=== PATIENT | male | born 1980 | race Caucasian/White ===

== ENCOUNTER 2016-10-15 22:22 | Inpatient (IN) ==
--- NOTE | 2016-10-16 00:47 | Emergency Department Note ---
Disposition Clinical Impression: Cellulitis Disposition: Home, Self-Care Condition: Good Time of Disposition: 01:52 General Adult HPI - General Chief complaint: ED Extremity Injury, Upper Stated complaint: left arm pain/heat in neck Time Seen by Provider: 10/16/16 00:43 Source: patient Mode of arrival: private vehicle Limitations: no limitations Nursing Notes Reviewed: Yes Vital Signs Reviewed: Yes - History of Present Illness HPI Narrative: 36-year-old male returns to the emergency department complaining of increased redness, swelling and pain to his left arm. Patient was seen here and evaluated in the emergency department approximately 14 hours ago for cellulitis. Patient states that his symptoms have worsened significantly since he was seen here. Patient states that he did receive 1 dose of IV antibiotics, was offered admission but at that time refused. He denies any chest pain or shortness of breath. He has not had any known traumatic injury to this extremity. Onset (ago): day(s) Location: left, upper extremity Radiation: proximal, distal Pain Scale: 8 Quality: burning, dull, constant Consistency: constant Improves with: nothing Worsens with: nothing Associated symptoms: Reports: nausea/vomiting Treatments Prior to Arrival: other (Recent health care encounter for similar complaint.) - Related Data Home Medications Medication Instructions Recorded Confirmed Elavil 07/22/15 07/22/15 Thorazine 07/22/15 07/22/15 Previous Rx's Medication Instructions Recorded Albuterol Sulfate [Proair HFA] 2 puff IH Q4HR 2 Days 07/22/15 Doxycycline 100 mg PO BID 7 Days 07/22/15 MethylPREDNISolone [Medrol] 4 mg PO DAILY #21 tablet 07/22/15 Mupirocin [Bactroban Oint] 1 appl NS BID 14 Days 07/22/15 Hydrocodone/Acetaminophen [[place] 1 tab PO TID PRN #15 tab 07/16/16 5-325 Tablet] Sulfamethoxazole/Trimeth DS 1 each PO BID #14 tablet 07/16/16 [Bactrim DS] Cephalexin [Keflex] 500 mg PO TID #30 capsule 10/15/16 Sulfamethoxazole/Trimeth DS 1 each PO BID #20 tablet 10/15/16 [Bactrim DS] Allergies Allergy/AdvReac Type Severity Reaction Status Date / Time aspirin [ASA] Allergy Rash Verified 10/15/16 22:38 Penicillins Allergy Gastrointestinal Verified 10/15/16 22:38 Upset All systems ED: reviewed and negative except as stated. Constitutional: Denies: fever, chills Cardiovascular: Denies: chest pain Respiratory: Denies: cough, dyspnea, wheezes Gastrointestinal: Denies: abdominal pain, nausea, vomiting Musculoskeletal: Reports: myalgia Integumentary: Denies: rash, abrasion, lesions Neurological: Denies: headache Psychiatric: Denies: anxiety, depression, suicidal thoughts, homicidal thoughts Past Medical History - Past Medical History Attestation: Yes The following information was validated with the patient. Source: patient, nursing notes reviewed Medical history: Reports: asthma, seizures, other Psychiatric history: Reports: anxiety, depression, PTSD - Social History Smoking Status: Current every day smoker Alcohol use: Reports: none Drug use: Reports: IVDU Physical Exam - General Limitations: no limitations General appearance: alert, in no apparent distress - Head Head exam: atraumatic, normocephalic, normal inspection - Neck Neck exam: Present: normal inspection, full ROM, trachea midline - Chest Chest inspection: Present: normal inspection, symmetric chest wall rise - Respiratory Respiratory exam: Present: normal lung sounds bilaterally. Absent: respiratory distress - Cardiovascular Cardiovascular exam: Present: regular rate, normal rhythm, normal heart sounds - Expanded Upper Extremity Exam Elbow exam: Present: tenderness, swelling, erythema, other (Tenderness, swelling , erythema noted to the volar aspect of the left arm beginning mid to upper third of the bicep and extending down to the middle forearm. Not completely circumferential but worsening since previous exam.) Vascular exam: Normal: capillary refill, radial pulse, ulnar pulse - Back Exam Back exam: Present: normal inspection, full ROM. Absent: tenderness - Neurological Exam Neurological exam: Present: alert, oriented X3 - Psychiatric Psychiatric exam: Present: normal affect, normal mood - Skin Skin exam: Present: warm, dry, intact, normal color Course Course Narrative: Patient returns to the emergency department with worsening cellulitis and pain. Review of his previous workup here in the emergency department earlier yesterday shows that a full workup was performed including a CBC, chemistry, blood cultures and CT of the upper extremity which did not reveal any discernible abscess or fluid collection. Plan to discuss admission with hospitalist as patient will likely fail outpatient therapy on oral Bactrim and Keflex. - Consultations Consultation #1: Discussed admission with hospitalist, he accepts patient. He requests an additional dose of vancomycin, and has been ordered. Patient will be admitted for IV antibiotics and observation. Time: 01:54 Vital Signs Temperature 99.4 F 10/15/16 22:39 Pulse Rate 106 10/15/16 22:39 Respiratory Rate 16 10/15/16 22:39 Blood Pressure 131/71 10/15/16 22:39 O2 Sat by Pulse Oximetry 100 10/15/16 22:39 Temperature 98.2 F 10/16/16 03:16 Pulse Rate 92 10/16/16 03:16 Respiratory Rate 17 10/16/16 03:16 Blood Pressure 114/69 10/16/16 03:16 O2 Sat by Pulse Oximetry 96 10/16/16 03:16 Oxygen Delivery Oxygen Delivery Room Air Medical Decision Making - Lab Data Lab results reviewed: Yes I reviewed the patient's lab results. - Radiology Data Radiology results reviewed: Yes I reviewed the patient's radiology results. Attestation Statement - Attestation Attestation: Dr. Camarillo note: Patient seen in conjunction with WU Alexander; please see his chart for complete documentation. I spent [id number] time with the patient and I agree with the patient's treatment and disposition. Progressive cellulitis since this a.m, high risk pt with h/o IV drug abuse;
[2016-10-16] MEDS ORDERED: 0.9 % Sodium Chloride 1,000 ML IVC ONE (01:29)
[2016-10-16] MEDS ORDERED: Ketorolac 30 MG/ML VIAL IV ONE (01:29)
[2016-10-16] MEDS ORDERED: Ampicillin/Sulbactam 3,000 MG in 0.9 % Sodium Chloride Mini Bag 100 ML IVPB ONE (01:29)
[2016-10-16] MEDS ORDERED: Vancomycin 1,000 MG in D5% in Water 250 ML IVPB ONE (01:48)
[2016-10-16] MEDS ORDERED: Vancomycin 1,250 MG in D5% in Water 250 ML IVPB SCH (07:00)
[2016-10-16] MEDS: *HR* OxyCODONE Immed Rel 5 MG TABLET PO PRN ×4 (08:17→21:39)
[2016-10-16] MEDS: Vancomycin 1,500 MG in D5% in Water 250 ML IVPB SCH (12:22)
[2016-10-16] MEDS ORDERED: *HR* Morphine 2 MG/ML SYRINGE IVP PRN (13:07)
[2016-10-16] MEDS ORDERED: Naloxone 0.4 MG/ML INJ IVP PRN (13:07)
--- NOTE | 2016-10-16 13:38 | Internal Med History&Physical ---
Date of Encounter: 10/16/16 Time of Encounter: 13:35 Assessment and Plan (1) Sepsis affecting skin Current visit: Yes Status: Acute Meets 2 criteria on Abx will continue same. will follow ID opinion (2) Cellulitis Current visit: Yes Status: Acute Source likely NARENDRA cellulitis. No definative orginsm yet On vanco ( day 2) will continue same. Qualifiers: Site of cellulitis: extremity Site of cellulitis of extremity: upper extremity Laterality: left Qualified Code(s): L03.114 - Cellulitis of left upper limb (3) Left upper extremity swelling Current visit: No Status: Acute (4) IVDU (intravenous drug user) Current visit: Yes Status: Acute Internal Medicine - H&P: HPI Chief complaint: hand pain Admitted From: Emergency Dept Plans for Post Hospital Care: Home History of present illness: PCP: No PCP Brief PMH: IVDU, Asthma, SZD, Depression HPI: admitted with left UL cellulitis. was started on Outpatient treatment for same and was on Bactrim and Keflex. He did not respond to oral medications. this is reason why he came to ER for further evaluation. reason for cellulitis : ?IVDU/Trauma Course in ER : was evaluated and started on Unasyn, CT scan along with US of NARENDRA was negative for abscess. reason for admission : Failure of OP oral treatment Past Med Surg Social Fam HX - Past Medical History Medical history: asthma, seizures, other Psychiatric history: anxiety, depression, PTSD - Social History Smoking Status: Current every day smoker Packs per day: 2-3 Alcohol use: none Drug use: IVDU - Family History Mother Living Status: Still Living Hx Family Respiratory Disorders: Yes (COPD, Emphysema) Hx Family Psychosocial Disorders: Yes Father Living Status: Age at : 59 Cause of : Tree fell on him and killed him Internal Medicine - H&P: Meds Albuterol Sulfate [Proair HFA] 2 puff IH Q4HR 2 Days 07/22/15 [Rx] Doxycycline 100 mg PO BID 7 Days 07/22/15 [Rx] Elavil 07/22/15 [History] MethylPREDNISolone [Medrol] 4 mg PO DAILY #21 tablet 07/22/15 [Rx] Mupirocin [Bactroban Oint] 1 appl NS BID 14 Days 07/22/15 [Rx] Thorazine 07/22/15 [History] Hydrocodone/Acetaminophen [[place] 5-325 Tablet] 1 tab PO TID PRN #15 tab [Rx] Sulfamethoxazole/Trimeth DS [Bactrim DS] 1 each PO BID #14 tablet 07/16/16 [Rx] Cephalexin [Keflex] 500 mg PO TID #30 capsule 10/15/16 [Rx] Sulfamethoxazole/Trimeth DS [Bactrim DS] 1 each PO BID #20 tablet 10/15/16 [Rx] Allergies aspirin [ASA] Allergy (Verified 10/15/16 22:38) Rash Penicillins Allergy (Verified 10/15/16 22:38) Gastrointestinal Upset All Systems PM: A 10-system review of systems was performed and is negative for pertinent findings except as documented above in the HPI. - Constitutional Constitutional: no chills, no fever(s), no night sweats - EENT Eyes: no change in vision, no discharge, no pain, no photophobia Ears: no ear discharge, no ear pain, no tinnitus Nose, mouth and throat: no dysphagia, no nasal discharge, no neck pain, no sore throat - Cardiovascular Cardiovascular ROS IM: no chest pain, no diaphoresis, no dyspnea, no lightheadedness, no palpitations, no syncope - Respiratory Respiratory: no cough, no dyspnea, no wheezing, no excessive phlegm production - Gastrointestinal Gastrointestinal: no abdominal pain, no diarrhea, no hematemesis, no hematochezia, no melena, no nausea, no vomiting - Musculoskeletal Musculoskeletal ROS IM: no numbness, no tingling - Integumentary Integumentary IM: no rash, no unusual bruising - Neurological Neurological ROS: no confusion, no convulsions, no focal weakness, no numbness, no tingling, no tremor(s) - Hematologic/Lymphatic Hematologic/Lymphatic: no easy bruising - Constitutional Vitals: Temp Pulse Resp BP Pulse Ox 98.1 F 80 17 117/70 97 10/16/16 11:12 10/16/16 11:12 10/16/16 11:12 10/16/16 11:12 10/16/16 11:12 - Head Head exam: Present: atraumatic, normocephalic - Eye Eye exam: Present: PERRL, conjuntiva pink, sclera anicteric Pupils: Present: PERRL - Neck Neck exam general surgery: Present: supple, trachea midline. Absent: lymphadenopathy - Respiratory Respiratory exam: Present: CTAB. Absent: accessory muscle use, rales, rhonchi, wheezes - Cardiovascular Cardiovascular exam: Present: RRR, +S1, +S2. Absent: diastolic murmur, gallop, rubs, systolic murmur - GI/Abdominal GI/Abdominal exam: Present: normal bowel sounds, soft, no peritoneal signs. Absent: distended, tenderness - Extremities Exam Extremities exam: Present: warm, radial pulses palpable and symetrical. Absent : calf tenderness, cyanotic, pedal edema - Neurological Exam Neurological exam: Present: CN II-XII intact, oriented X3, no focal deficits. Absent: pronater drift, facial droop, speech deficit - Skin Skin exam: Present: dry, intact
[2016-10-16] MEDS: 0.9 % Sodium Chloride 1,000 ML IVC SCH (13:51)
--- NOTE | 2016-10-16 14:05 | Infectious Disease Consult ---
Date of Encounter: 10/16/16 Time of Encounter: 14:03 Assessment and Plan (1) Sepsis affecting skin Status: Acute Assessment and plan: patient had 2 sirs criteria on admission (tachycardia and leukocytosis) improving secondary to cellulitis cultures pending (2) Cellulitis Status: Acute Assessment and plan: Symptoms started 2 weeks prior to admission secondary to splinter from walking into wall vs IVDU? failed outpatient treatment with keflex and bactrim CT negative for abscess US negative for DVT improved on vancomycin cultures pending patient states he's allergic to PCN (had rash when he was young) tolerated keflex Agree with IV vancomycin (goal trough around 10) check labs in the am (CBC, BMP, vanco trough prior to 4th dose) monitor kidney function closely follow up on cultures Qualifiers: Site of cellulitis: extremity Site of cellulitis of extremity: upper extremity Laterality: left Qualified Code(s): L03.114 - Cellulitis of left upper limb (3) Left upper extremity swelling Status: Acute (4) IVDU (intravenous drug user) Status: Acute Assessment and plan: had hepatitis profile and hiv checked in August no need to repeat not immune to hepatitis B might benefit from vaccine (recommend vaccination series as outpatient) Infectious Disease HPI - Data of Consult Patient: new to practice Consult date: 10/16/16 Requesting Physician: Christian Bermudez Primary Care Provider: PCP NO - Consult Narrative Reason for consult: cellulitis failed outpatient treatment History of present illness: Mr. Pruitt is a 36 year old male Patient is a 36 year old man admitted to [facility] on 10/15/16 with cellulitis of the LUE antecubital area that failed outpatient treatment with Bactrim and Keflex. Briefly, patient is a 36 year old gentleman with no past medical history and a social history positive for tobacco abuse and IVDU came into the Ed for evaluation for failing outpatient antibiotics treatment for cellulitis of the RUE. He states that about 2 weeks prior to admission, he was sleep walking and he walked into a wall and had a splinter going into his arm. He pulled the splinter and 2 days later he had cellulitis. He was then evaluated as outpatient and given Keflex and Bactrim and discharged home. He states that the antibiotics didnt help and he is back for worsening redness swelling and pain. Patient denied any chills or rigors at home but states that he felt febrile. He adamantly denies IVDU in that arm and states he only used the right arm. Patient was also recently checked for HIV and hepatitis in August of this year which showed no active infection and no immunity to hep b Since admission, patient has been afebrile with tmax of 99.4F. He was initially tachycardic and had leukocytosis with WBC of 11.6 with normal Diff. blood cultures were obtained and so far no growth. A CT left UE revealed cellulitis but no abscess. US was negative for a DVT. Patient was started on IV vancomycin and we were asked to evaluate the patient and make further recommendations. Currently the patient denies any fevers, chills, night sweats. Continues to have pain in the LUE but states it feels better. NO chest pain, no shortness of breath, no abdominal pain, no diarrhea, no urinary symptoms, no rash, no joint pain CC: Christian Bermudez Past Med Surg Social Fam HX - Past Medical History Medical history: asthma, seizures, other Psychiatric history: anxiety, depression, PTSD - Social History Smoking Status: Current every day smoker Packs per day: 2-3 Alcohol use: none Drug use: IVDU - Family History Mother Living Status: Still Living Hx Family Respiratory Disorders: Yes (COPD, Emphysema) Hx Family Psychosocial Disorders: Yes Father Living Status: Age at : 59 Cause of : Tree fell on him and killed him Infectious Disease-CN:Meds Albuterol Sulfate [Proair HFA] 2 puff IH Q4HR 2 Days 07/22/15 [Rx] Doxycycline 100 mg PO BID 7 Days 07/22/15 [Rx] Elavil 07/22/15 [History] MethylPREDNISolone [Medrol] 4 mg PO DAILY #21 tablet 07/22/15 [Rx] Mupirocin [Bactroban Oint] 1 appl NS BID 14 Days 07/22/15 [Rx] Thorazine 07/22/15 [History] Hydrocodone/Acetaminophen [[place] 5-325 Tablet] 1 tab PO TID PRN #15 tab [Rx] Sulfamethoxazole/Trimeth DS [Bactrim DS] 1 each PO BID #14 tablet 07/16/16 [Rx] Cephalexin [Keflex] 500 mg PO TID #30 capsule 10/15/16 [Rx] Sulfamethoxazole/Trimeth DS [Bactrim DS] 1 each PO BID #20 tablet 10/15/16 [Rx] Allergies aspirin [ASA] Allergy (Verified 10/15/16 22:38) Rash Penicillins Allergy (Verified 10/15/16 22:38) Gastrointestinal Upset Review of systems: 10 pointn ros done, negative other for what's mentioned in the HPI Exam - Constitutional Vitals: Temp Pulse Resp BP Pulse Ox 98.1 F 80 17 117/70 97 10/16/16 11:12 10/16/16 11:12 10/16/16 11:12 10/16/16 11:12 10/16/16 11:12 General appearance: no acute distress, no febrile - Head Head exam: Present: atraumatic, normal inspection - Eye Eye exam: Present: EOMI, PERRL, sclera anicteric Additional comments: no conjunctival hemorrhage - Neck Neck exam: Present: full ROM. Absent: meningismus - Respiratory Respiratory exam: Present: CTAB. Absent: wheezes - Cardiovascular Cardiovascular exam: Present: RRR, +S1, +S2 Additional comments: I didnt appreciate any murmurs - GI/Abdominal GI/Abdominal exam: Present: normal bowel sounds, soft Additional comments: no organomegaly - Extremities Exam Extremities exam: Present: full ROM Additional comments: LUE with swelling and tenderness around the anticubital area. minimal erythema but still some warmth to touch. no fluctuance - Neurological Exam Neurological exam: Present: alert, oriented X3, no focal deficits - Skin Additional comments: no endocarditis stigmata multiple tattoos IVDU tracks noted RUE Consult Discharge Plan - Plan Referrals: NO,PCP [Primary Care Provider] -
[2016-10-16] MEDS: Nicotine 14 MG PATCH.TD24 TD SCH (17:50)
[2016-10-16] MEDS: *HR* Heparin 5,000 UNIT/ML VIAL SQ SCH (17:50)
[2016-10-17] MEDS: Vancomycin 1,500 MG in D5% in Water 250 ML IVPB SCH ×2 (01:15→10:34)
[2016-10-17] MEDS: 0.9 % Sodium Chloride 1,000 ML IVC SCH ×2 (05:03→19:55)
[2016-10-17 05:30] LABS: Basophils # 0.1 K/mcL (0.0-0.2); Basophils % 1.1 %; Eosinophils # 0.5 K/mcL (0.0-0.6); Eosinophils % 5.7 %; Hematocrit 40.3 % (37.5-50.1); Hemoglobin 14.1 g/dL (12.9-16.9); Immature Granulocytes % 1.9 % (0-4); Mean Corpuscular Volume 88.6 fL (83.0-100.0); Mean Platelet Volume 9.8 fL (9.4-12.4); Monocytes # 1.2 K/mcL (0.0-1.3); Monocytes % 14.7 %; Platelet Count 341 K/mcL (140-400); Red Blood Count 4.55 M/mcL (4.19-5.50); Red Cell Distribution Width 12.1 % (11.5-14.5); Segmented Neutrophils % 38.6 %
[2016-10-17 05:53] LABS: Alanine Aminotransferase 40 Units/L (0-55); Albumin 2.9 g/dL (3.5-5.0); Albumin/Globulin Ratio 0.9 (1.1-2.2); Alkaline Phosphatase 62 Units/L (38-126); Aspartate Amino Transferase 25 Units/L (5-34); BUN/Creatinine Ratio 12 (6-26); Bilirubin,Total 0.3 mg/dL (0.2-1.2); Blood Urea Nitrogen 9 mg/dL (8-26); Calcium 8.8 mg/dL (8.6-10.8); Carbon Dioxide 23 mEq/L (19-29); Chloride 106 mEq/L (98-109); Globulin 3.2 g/dL (2.4-3.5); Glucose 117 mg/dL (70-99); Osmolality,Calculated 286 (280-300); Phosphorous 4.7 mg/dL (2.3-4.7); Potassium 3.9 mEq/L (3.5-4.5); Sodium 138 mEq/L (136-145); Total Protein 6.1 g/dL (6.0-8.3); eGFR For African Americans > 60 (> 60); eGFR For Non-African Americans > 60 (> 60)
[2016-10-17] MEDS: *HR* Heparin 5,000 UNIT/ML VIAL SQ SCH ×2 (05:57→17:40)
[2016-10-17] MEDS: *HR* OxyCODONE Immed Rel 5 MG TABLET PO PRN ×3 (05:58→17:40)
--- NOTE | 2016-10-17 09:17 | Internal Med Progress Note ---
Date of Encounter: 10/17/16 Time of Encounter: 09:15 - Assessment and plan (1) Sepsis affecting skin Current Visit: Yes Status: Acute Assessment and plan: Meets 2 criteria on Abx will continue same. will follow ID opinion 10/17/2016 area of induration is getting better no pus or sinus seen. (2) Cellulitis Current Visit: Yes Status: Acute Assessment and plan: Source likely NARENDRA cellulitis. No definative orginsm yet On vanco ( day 2) will continue same. 10/17/2016 Vanco ( Day3) Blood culture negative so far gettng better will continue same Qualifiers: Site of cellulitis: extremity Site of cellulitis of extremity: upper extremity Laterality: left Qualified Code(s): L03.114 - Cellulitis of left upper limb (3) Left upper extremity swelling Current Visit: No Status: Acute (4) IVDU (intravenous drug user) Current Visit: Yes Status: Acute - Subjective Interval history: seen and examined. patient claims that his pain is getting better. has no issues overnight other than many visitors. - Constitutional Vitals: Temp Pulse Resp BP Pulse Ox 97.7 F 66 16 128/73 97 10/17/16 07:00 10/17/16 07:00 10/17/16 07:00 10/17/16 07:00 10/17/16 07:00 - Head Head exam: Present: atraumatic, normocephalic - Eye Eye exam: Present: PERRL, conjuntiva pink, sclera anicteric Pupils: Present: PERRL - Neck Neck exam general surgery: Present: supple, trachea midline. Absent: lymphadenopathy - Respiratory Respiratory exam: Present: CTAB. Absent: accessory muscle use, rales, rhonchi, wheezes - Cardiovascular Cardiovascular exam: Present: RRR, +S1, +S2. Absent: diastolic murmur, gallop, rubs, systolic murmur - GI/Abdominal GI/Abdominal exam: Present: normal bowel sounds, soft, no peritoneal signs. Absent: distended, tenderness - Extremities Exam Extremities exam: Present: warm, radial pulses palpable and symetrical. Absent : calf tenderness, cyanotic, pedal edema - Neurological Exam Neurological exam: Present: CN II-XII intact, oriented X3, no focal deficits. Absent: pronater drift, facial droop, speech deficit - Skin Skin exam: Present: dry, intact Internal Medicine: Result - Labs CBC & Chem 7: 10/17/16 04:06 10/17/16 04:06 Labs: Short CBC 10/17/16 Range/Units 04:06 WBC 7.9 (4.3-11.1) K/mcL Hgb 14.1 (12.9-16.9) g/dL Hct 40.3 (37.5-50.1) % Plt Count 341 (140-400) K/mcL Neutrophils # 3.0 (1.6-8.9) K/mcL BMP 10/17/16 04:06 Sodium 138 Potassium 3.9 Chloride 106 Carbon Dioxide 23 BUN 9 Creatinine 0.75 Glucose 117 H Calcium 8.8 Liver Function 10/17/16 Range/Units 04:06 Total Bilirubin 0.3 (0.2-1.2) mg/dL AST 25 (5-34) Units/L ALT 40 (0-55) Units/L Alkaline Phosphatase 62 (38-126) Units/L Albumin 2.9 L (3.5-5.0) g/dL Consult Discharge Plan - Plan Referrals: NO,PCP [Primary Care Provider] -
[2016-10-17] MEDS: Nicotine 14 MG PATCH.TD24 TD SCH (10:33)
[2016-10-17 10:37] LABS: Hepatitis C Virus Antibody Reactive (Nonreactive)
--- NOTE | 2016-10-17 12:41 | Infectious Disease Progress No ---
Date of Encounter: 10/17/16 Time of Encounter: 12:39 - Assessment and Plan (1) Sepsis affecting skin Current Visit: Yes Status: Acute patient had 2 sirs criteria on admission (tachycardia and leukocytosis) improving secondary to cellulitis cultures no growth to date (2) Cellulitis Current Visit: Yes Status: Acute Symptoms started 2 weeks prior to admission secondary to splinter from walking into wall vs IVDU? failed outpatient treatment with keflex and bactrim CT negative for abscess US negative for DVT improved on vancomycin cultures pending patient states he's allergic to PCN (had rash when he was young) tolerated keflex Agree with IV vancomycin (goal trough around 10) check labs in the am (CBC, BMP, vanco trough prior to 4th dose) monitor kidney function closely follow up on cultures: So far no growth. Patient has a few days of IV vancomycin, consider discharge on oral Bactrim or oral doxycycline or oral clindamycin on discharge Qualifiers: Site of cellulitis: extremity Site of cellulitis of extremity: upper extremity Laterality: left Qualified Code(s): L03.114 - Cellulitis of left upper limb (3) Left upper extremity swelling Current Visit: No Status: Acute (4) IVDU (intravenous drug user) Current Visit: Yes Status: Acute Non-reliable source of information I believe he is still shooting IV drugs (5) Hepatitis C Current Visit: Yes Status: Acute Current seroconversion. Hepatitis C antibody was negative in August and is positive on this admission Check HIV status please Patient hepatitis B antibody is showing immunity We'll check hepatitis B core antibody. Qualifiers: Viral hepatitis chronicity: acute Hepatic coma status: without hepatic coma Qualified Code(s): B17.10 - Acute hepatitis C without hepatic coma - Subjective Interval history: Patient seen and examined. Appears comfortable. States that he still has some tenderness in his left upper extremity. Patient denies any chest pain or shortness of breath. Yesterday asked the patient if he has been using IV drugs and he said he hasn't used any for over a month. I even asked him if he sharing any needles and he adamantly said no. I believe the patient is not very reliable source of information. Infect Dis PN-Objective Data - Labs CBC & Chem 7: 10/17/16 04:06 10/17/16 04:06 Labs: Laboratory Results - last 24 hr 10/16/16 10/17/1617 14:01 04:06 04:06 WBC 7.9 RBC 4.55 Hgb 14.1 Hct 40.3 MCV 88.6 MCH 31.0 MCHC 35.0 RDW 12.1 Plt Count 341 MPV 9.8 Immature Gran % 1.9 Seg Neutrophils % 38.6 Lymphocytes % 38.0 Monocytes % 14.7 Eosinophils % 5.7 Basophils % 1.1 Neutrophils # 3.0 Lymphocytes # 3.0 Monocytes # 1.2 Eosinophils # 0.5 Basophils # 0.1 Sodium 138 Potassium 3.9 Chloride 106 Carbon Dioxide 23 BUN 9 Creatinine 0.75 Est GFR ( Amer) > 60 Est GFR (Non-Af Amer) > 60 BUN/Creatinine Ratio 12 Glucose 117 H Calculated Osmolality 286 Calcium 8.8 Phosphorus 4.7 Magnesium 2.0 Total Bilirubin 0.3 AST 25 ALT 40 Alkaline Phosphatase 62 Serum Total Protein 6.1 Albumin 2.9 L Globulin 3.2 Albumin/Globulin Ratio 0.9 L Hep Bs Antibody 0.20 Hepatitis C Ab Screen Reactive H Cultures: Serology 10/16/16 Range/Units 14:01 Hep Bs Antibody 0.20 mIU/mL Hepatitis C Ab Screen Reactive H (Nonreactive) Exam - Constitutional Vitals: Temp Pulse Resp BP Pulse Ox 98 F 76 16 125/84 97 10/17/16 10:40 10/17/16 10:40 10/17/16 10:40 10/17/16 10:40 10/17/16 10:40 General appearance: no acute distress, no febrile - Head Head exam: Present: atraumatic, normocephalic - Neck Neck exam: Present: full ROM. Absent: meningismus - Respiratory Respiratory exam: Present: CTAB. Absent: wheezes - Cardiovascular Cardiovascular exam: Present: RRR, +S1, +S2. Absent: diastolic murmur, systolic murmur - GI/Abdominal GI/Abdominal exam: Present: normal bowel sounds, soft - Extremities Exam Additional comments: Infection of left upper extremity appears to have fully resolved. I could not feel any warmth, there is no erythema, it grout machine tender to touch but there is no fluctuance. Consult Discharge Plan - Plan Referrals: NO,PCP [Primary Care Provider] -
[2016-10-18] MEDS: Vancomycin 1,500 MG in D5% in Water 250 ML IVPB SCH ×3 (00:19→21:36)
[2016-10-18] MEDS: *HR* OxyCODONE Immed Rel 5 MG TABLET PO PRN ×4 (00:26→19:57)
[2016-10-18] MEDS: *HR* Heparin 5,000 UNIT/ML VIAL SQ SCH ×2 (06:06→18:43)
[2016-10-18] MEDS: 0.9 % Sodium Chloride 1,000 ML IVC SCH ×2 (06:07→19:54)
[2016-10-18] MEDS: Nicotine 14 MG PATCH.TD24 TD SCH (08:57)
--- NOTE | 2016-10-18 17:59 | Internal Med Progress Note ---
Date of Encounter: 10/18/16 Time of Encounter: 17:57 - Assessment and plan (1) Sepsis affecting skin Current Visit: Yes Status: Acute Assessment and plan: Meets 2 criteria on Abx will continue same. will follow ID opinion 10/17/2016 area of induration is getting better no pus or sinus seen. 10/18/2016 area of induration is improving but still present. no new needle fanta is noted. (2) Cellulitis Current Visit: Yes Status: Acute Assessment and plan: Source likely NARENDRA cellulitis. No definative orginsm yet On vanco ( day 2) will continue same. 10/17/2016 Vanco ( Day3) Blood culture negative so far gettng better will continue same 10/18/2016 Day 4 vanco blood culture negative so far. will d/c IV abx tomorrow and possible home. Qualifiers: Site of cellulitis: extremity Site of cellulitis of extremity: upper extremity Laterality: left Qualified Code(s): L03.114 - Cellulitis of left upper limb (3) Left upper extremity swelling Current Visit: No Status: Acute (4) IVDU (intravenous drug user) Current Visit: Yes Status: Acute - Subjective Interval history: seen and examined. patient claims that his pain is getting better. has no issues overnight other than many visitors. 10/18/2016 still has induration over left cubital area. no new complaints. eating well and denies any pain. - Constitutional Vitals: Temp Pulse Resp BP Pulse Ox 98.3 F 89 16 125/79 95 10/18/16 15:21 10/18/16 15:21 10/18/16 15:21 10/18/16 15:21 10/18/16 15:21 - Head Head exam: Present: atraumatic, normocephalic - Eye Eye exam: Present: PERRL, conjuntiva pink, sclera anicteric Pupils: Present: PERRL - Neck Neck exam general surgery: Present: supple, trachea midline. Absent: lymphadenopathy - Respiratory Respiratory exam: Present: CTAB. Absent: accessory muscle use, rales, rhonchi, wheezes - Cardiovascular Cardiovascular exam: Present: RRR, +S1, +S2. Absent: diastolic murmur, gallop, rubs, systolic murmur - GI/Abdominal GI/Abdominal exam: Present: normal bowel sounds, soft, no peritoneal signs. Absent: distended, tenderness - Extremities Exam Extremities exam: Present: warm, radial pulses palpable and symetrical. Absent : calf tenderness, cyanotic, pedal edema - Neurological Exam Neurological exam: Present: CN II-XII intact, oriented X3, no focal deficits. Absent: pronater drift, facial droop, speech deficit - Skin Skin exam: Present: dry, intact Internal Medicine: Result - Labs CBC & Chem 7: 10/17/16 04:06 10/17/16 04:06 Consult Discharge Plan - Plan Referrals: NO,PCP [Primary Care Provider] - (Patient would like to find his own PCP. Patient was given the "find a physician" number to find his own PCP.)
[2016-10-18] MEDS ORDERED: Acetaminophen 325 MG TABLET PO PRN (21:47)
[2016-10-19] MEDS: 0.9 % Sodium Chloride 1,000 ML IVC SCH ×3 (00:38→06:03)
[2016-10-19] MEDS: Vancomycin 1,500 MG in D5% in Water 250 ML IVPB SCH ×2 (06:04→13:26)
[2016-10-19] MEDS: *HR* Heparin 5,000 UNIT/ML VIAL SQ SCH (06:05)
[2016-10-19] MEDS: *HR* OxyCODONE Immed Rel 5 MG TABLET PO PRN ×2 (06:07→13:25)
[2016-10-19] MEDS: Nicotine 14 MG PATCH.TD24 TD SCH (09:12)
[2016-10-19 10:32] VITALS: BP 151/79
--- NOTE | 2016-10-19 15:26 | Discharge Summary ---
Date of Encounter: 10/19/16 Time of Encounter: 15:23 - Discharge Diagnosis (1) Sepsis affecting skin Priority: Primary Status: Acute (2) Cellulitis Priority: Primary Status: Acute Qualifiers: Site of cellulitis: extremity Site of cellulitis of extremity: upper extremity Laterality: left Qualified Code(s): L03.114 - Cellulitis of left upper limb (3) Left upper extremity swelling Priority: Primary Status: Acute (4) IVDU (intravenous drug user) Priority: Secondary Status: Acute - Discharge Medications Prescriptions: OxyCODONE Immed Rel [Roxicodone 5 MG] 5 mg PO Q4HR PRN #10 tablet PRN Reason: Pain Sulfamethoxazole/Trimeth DS [Bactrim DS] 1 each PO BID #30 tablet Home Medications: Buprenorphine HCl/Naloxone HCl [Suboxone 8 mg-2 mg Sl Film] 1.5 each SL DAILY [History] EPINEPHrine [Epipen] 0.3 mg IM ONCE PRN 10/16/16 [History] Loratadine [Claritin] 10 mg PO DAILY 10/16/16 [History] OxyCODONE Immed Rel [Roxicodone 5 MG] 5 mg PO Q4HR PRN #10 tablet 10/19/16 [Rx] Sulfamethoxazole/Trimeth DS [Bactrim DS] 1 each PO BID #30 tablet 10/19/16 [Rx] Allergies/Adverse Reactions: Allergies aspirin [ASA] Allergy (Verified 10/15/16 22:38) Rash Penicillins Allergy (Verified 10/15/16 22:38) Gastrointestinal Upset Date of admission: 10/16/16 13:07 Primary care physician: PCP NO Consults: 10/16/16 13:33 Consult to Infectious Diseases [CONS] Routine Consulting Provider: [facility] [place] Reason for Consult: cellulitis in drug addict Call Completed: Yes Discharging clinician: Mario Murray - Patient Status Disposition: Home, Self-Care Condition: Good Functional capacity at discharge: independent ambulation Overall status at discharge: patient is progressing back to baseline - Discharge Instructions Follow Up With: NO,PCP [Primary Care Provider] - (Patient would like to find his own PCP. Patient was given the "find a physician" number to find his own PCP.) Flavio Bradley DO [Resident] - 12/14/16 1:30 pm Amber Pina MD [Partnered Physician] - - Diet and Activity Activity: increase activity as tolerated Diet: low fat, low cholesterol Interval History: PCP: No PCP Brief PMH: IVDU, Asthma, SZD, Depression HPI: admitted with left UL cellulitis. was started on Outpatient treatment for same and was on Bactrim and Keflex. He did not respond to oral medications. this is reason why he came to ER for further evaluation. reason for cellulitis : ?IVDU/Trauma Course in ER : was evaluated and started on Unasyn, CT scan along with US of NARENDRA was negative for abscess. reason for admission : Failure of OP oral treatment Hospital course: patient was hospitalized.his CT scan, ultrasound,other imaging was negative for any Abscess. Infectious disease was consulted. Infectious disease recommended intravenous vancomycin for 3-4 days. patient received same. Blood cultures negative for any organisms. infectious disease recommended oral for 2 weeks Patient was given a prescription for pain medication and oral Bactrim. Noted that patient is hep C positive. Plan: Home today follow up with PCP follow up with GI - Time Spent with Patient Total time spent providing and/or coordinating discharge services: - Constitutional Vitals: Temp Pulse Resp BP Pulse Ox 97.9 F 73 14 151/79 100 10/19/16 10:32 10/19/16 10:32 10/19/16 10:32 10/19/16 10:32 10/19/16 10:32 - Head Head exam: Present: atraumatic, normocephalic - Eye Eye exam: Present: PERRL, conjuntiva pink, sclera anicteric Pupils: Present: PERRL - Neck Neck exam general surgery: Present: supple, trachea midline. Absent: lymphadenopathy - Respiratory Respiratory exam: Present: CTAB. Absent: accessory muscle use, rales, rhonchi, wheezes - Cardiovascular Cardiovascular exam: Present: RRR, +S1, +S2. Absent: diastolic murmur, gallop, rubs, systolic murmur - GI/Abdominal GI/Abdominal exam: Present: normal bowel sounds, soft, no peritoneal signs. Absent: distended, tenderness - Extremities Exam Extremities exam: Present: warm, radial pulses palpable and symetrical. Absent : calf tenderness, cyanotic, pedal edema - Neurological Exam Neurological exam: Present: CN II-XII intact, oriented X3, no focal deficits. Absent: pronater drift, facial droop, speech deficit - Skin Skin exam: Present: dry, intact
[2016-10-19] MEDS ORDERED: Aminoglycoside Consult 1 EACH MC ONE (15:47)
== END 2016-10-19 15:48 | disposition home or self-care (01) | DRG 720 ==
LOC: 3ANU 22:22 → EMEROO 22:22 → 3ANU 10-16 03:00 → SUATTDRO 10-16 13:07
PROVIDERS: ADMIT Internal Medicine; ATTEND Internal Medicine

== ENCOUNTER 2017-04-19 02:06 | Inpatient (IN) ==
[2017-04-19] MEDS ORDERED: 0.9 % Sodium Chloride 1,000 ML IVC ONE ×2 (04:12→07:55)
--- NOTE | 2017-04-19 04:20 | Internal Med History&Physical ---
Date of Encounter: 04/19/17 Time of Encounter: 04:44 Assessment and Plan (1) Cellulitis Current visit: Yes Status: Acute 36 y/o male hx of IVDU, Hep C, cc of right UE swelling, erythema, warmth difficult to flex right elbow past 80 degrees, and pain with flexion of right wrist febrile, elevated wbc has hx of cellulitis in left arm treated last September with vancomycin and keflex patient states he has penicillin allergy makes his throat swell sepsis 2nd to cellulites of right UE Plan: blood cultures obtained at outside facility vanc and meropenam: can deescalate based upon blood cultures CT RUE with contrast RUE doppler to r/o DVT NPO Tylenol to control fever Qualifiers: Site of cellulitis: extremity Site of cellulitis of extremity: upper extremity Laterality: right Qualified Code(s): L03.113 - Cellulitis of right upper limb (2) IVDU (intravenous drug user) Current visit: Yes Status: Acute hx of IVDU last use 2 weeks ago track li on UE b/l states he has been worked up for endocarditis in the past, however do not see any records of this will obtain echocardiogram (3) DVT prophylaxis Current visit: Yes Status: Acute heparin SQ (4) D-dimer, elevated Current visit: Yes Status: Acute d-dimer was obtained at outisde facility and was elevated patient initially was not tachycardic wells score 0 has been given lovenox 90mg at outside facility patient saturating 98% on room air. will obtain venous doppler of right UE Internal Medicine - H&P: HPI Chief complaint: right arm swelling Admitted From: Home Plans for Post Hospital Care: Home History of present illness: Mr. Pruitt is a 36 year old male hx of IVD use presents with cc of right arm swelling transfer from outside facility. THree days ago patient his his proximan aspect of his right forearm on the dash of his car and developed a blood bilster which he then opened up with a razor. Thereafter, he devloped swelling, erythema and warmth in his right UE. He went to urgent care and was prescribed bactrim and tordol, however this did not improve his swelling, which had expanded now where he could not flex his elbow past 80 degrees and returned to ER yesterday evening. He reports fever, chills, Last IVDU (heroin) was 2 weeks ago and he used his left forearm to inject, chest pain, nonproductive cough, sob, N/V. He was treated with vancomycin, 2L IVF, and blood cultures were drawn at outside facility before transfering to [facility]. He presents tachycardic, febrile, and wbc of 27. xray of right arm shows no evidence of fracture. Past Med Surg Social Fam HX - Past Medical History Medical history: no medical history Psychiatric history: anxiety, depression, PTSD - Past Surgical History Surgical History: other - Social History Smoking Status: Current every day smoker Smokeless Tobacco Status: No Alcohol use: none Drug use: IV Drug Use - Family History Mother Living Status: Still Living Hx Family Respiratory Disorders: Yes (COPD, Emphysema) Father Living Status: Internal Medicine - H&P: Meds Ketorolac [Toradol] 10 mg PO Q6HR #15 tablet 04/16/17 [Rx] Sulfamethoxazole/Trimeth DS [Bactrim DS] 1 each PO BID #20 tablet 04/16/17 [Rx] Allergies aspirin [ASA] Allergy (Verified 04/16/17 14:38) Rash Penicillins Allergy (Verified 04/16/17 14:38) Gastrointestinal Upset All Systems PM: A 10-system review of systems was performed and is negative for pertinent findings except as documented above in the HPI. Review of systems: Constitutional: Reports fevers and chills HEENT: Denies headache, vision changes, neck pain, sore throat, rhinorrhea Heart: Reports chest pain, denies palpitations Lungs: Reports nonproductive cough and shortness of breath Abdomen: Denies abdominal pain. Reports nausea, vomiting denies diarrhea Back: Denies back pain Kidney: Denies dysuria, hematuria Extremities: Reports right arm swelling, erythema, pain, numbness and tingling Neuro: Denies numbness, and tingling - Constitutional Vitals: Temp Pulse Resp BP Pulse Ox 102.1 F H 108 16 118/71 98 04/19/17 03:56 04/19/17 03:56 04/19/17 03:56 04/19/17 03:56 04/19/17 03:56 - Other Additional findings: General: Alert and oriented to place time and situation. Mild distress HEENT: Head atraumatic, normocephalic, EOMI, PERRLA, neck nontender to palpation , absent Lymphadenopathy, Moist Mucous Membranes, Heart: Regular rate and rhythm with no murmur Lungs: Clear to auscultation bilaterally Abdomen: Soft nontender, nondistended positive bowel sounds Extremities: Open blister dorsal proximal aspect of right upper extremity, diffuse erythema, swelling, patient unable to flex right elbow past 80 degrees, pain with flexion and extension of right wrist. Multiple track li on his left forearm and right forearm. Capillary refill 2 seconds bilaterally, radial pulses palpable bilaterally. Neuro: Cranial nerves II through XII intact, sensation equal bilaterally, strength upper and lower extremity 5/5, alert oriented 3 Vascular: Pedal and radial pulses 2 out of 4
[2017-04-19] MEDS ORDERED: Ibuprofen 400 MG TABLET PO PRN ×2 (04:33→18:48)
[2017-04-19] MEDS ORDERED: Naloxone 0.4 MG/ML INJ IVP PRN ×2 (04:33→18:48)
[2017-04-19] MEDS ORDERED: *HR* Morphine 2 MG/ML SYRINGE IVP PRN ×2 (04:33→18:48)
[2017-04-19] MEDS ORDERED: Ketorolac 30 MG/ML VIAL IVP PRN ×2 (04:33→18:48)
--- NOTE | 2017-04-19 04:50 | Event Note ---
Date of Encounter: 04/19/17 Time of Encounter: 04:44 36 yo male who is IVDA presents with right arm cellulitis. He had a vesicle in right elbow who he tried to open with a razor blade. Started having progressive right arm swelling. ROM at right elbow is 80 degrees. Will start vanc and meropenem. Contrasted CT scan of right arm to look for necrotizing fasciitis. Aggressive hydration. Keep NPO till CT results available. He denied any injections in the right arm. Will check echo.
[2017-04-19] MEDS: Acetaminophen 325 MG TABLET PO PRN ×3 (05:19→12:50)
[2017-04-19] MEDS ORDERED: *HR* Heparin 5,000 UNIT/ML VIAL SQ SCH (06:00)
[2017-04-19] MEDS: Vancomycin 1,250 MG in D5% in Water 250 ML IVPB SCH ×3 (06:26→22:50)
[2017-04-19 07:06] LABS: Amphetamine Screen,Urine Positive ng/mL (Cutoff=1000); Barbiturate Screen,Urine Negative ng/mL (Cutoff=200); Benzodiazepines Screen,Urine Negative ng/mL (Cutoff=200); Cannabinoid Screen,Urine Negative ng/mL (Cutoff = 50); Cocaine Screen,Urine Negative ng/mL (Cutoff= 300); Opiate Screen,Urine Positive ng/mL (Cutoff=300); Phencyclidine Screen,Urine Negative ng/mL (Cutoff=25)
[2017-04-19] MEDS ORDERED: Meropenem 1,000 MG in 0.9 % Sodium Chloride Mini Bag 100 ML IVPB SCH (08:00)
[2017-04-19 08:36] LABS: Hematocrit 36.6 % (37.5-50.1); Hemoglobin 12.8 g/dL (12.9-16.9); Mean Corpuscular Hemoglobin 29.6 pg (28.0-33.3); Mean Corpuscular Volume 84.5 fL (83.0-100.0); Mean Platelet Volume 9.1 fL (9.4-12.4); Platelet Count 347 K/mcL (140-400); Red Blood Count 4.33 M/mcL (4.19-5.50); Red Cell Distribution Width 13.2 % (11.5-14.5)
[2017-04-19 08:47] LABS: BUN/Creatinine Ratio 9 (6-26); Blood Urea Nitrogen 6 mg/dL (8-26); Calcium 8.2 mg/dL (8.6-10.8); Carbon Dioxide 23 mEq/L (19-29); Chloride 102 mEq/L (98-109); Glucose 96 mg/dL (70-99); Osmolality,Calculated 267 (280-300); Potassium 3.7 mEq/L (3.5-4.5); Sodium 130 mEq/L (136-145); eGFR For African Americans > 60 (> 60); eGFR For Non-African Americans > 60 (> 60)
[2017-04-19] MEDS ORDERED: Vancomycin 1,250 MG in D5% in Water 250 ML IVPB SCH (09:00)
[2017-04-19] MEDS ORDERED: 0.9 % Sodium Chloride 1,000 ML IV ONE (09:25)
--- NOTE | 2017-04-19 10:51 | Internal Med Progress Note ---
Date of Encounter: 04/19/17 Time of Encounter: 08:40 - Assessment and plan (1) Cellulitis Current Visit: Yes Status: Acute Assessment and plan: Pt with extensive cellulitis to RUE. Pt with limited ROM to elbow and wrist. Pt has an open wound to RUE that is draining purulent fluid. Dr. Miles has been consulted and will take the pt to surgery for I and D. Pt has leukocytosis and has been started on Vancomycin and Meropenem. CT showed small abscess. Upper Extremity CT 04/19/17 04:40 IMPRESSION: Diffuse generalized subcutaneous edema that is consistent with cellulitis in the correct clinical setting. Small, indeterminate 2.4 x 1.3 cm fluid collection posterior of the olecranon. Correlate clinical evidence of localized abscess. D/ / 04/19/2017 07:38:52 Alfonso Velasquez MD / [facility] Interpreting Provider: Alfonso Velasquez MD Qualifiers: Site of cellulitis: extremity Site of cellulitis of extremity: upper extremity Laterality: right Qualified Code(s): L03.113 - Cellulitis of right upper limb (2) Sepsis Current Visit: Yes Status: Acute Assessment and plan: Pt with extensive cellulitis to RUE with abscess per CT and open wound with purulent drng. White count has been increasing and currently is 34.9. He has had a fever overnight and is tachycardic rate 100s. Lactic acid 0.7 at 0830 this a.m. Continue Vancomycin and Meropenem IV. Pt is allergic to PCN. IVF boluses for fluid resuscitation Telemetry Blood cultures ordered after IV antibiotics started Monitor labs VS every hour with temperature Qualifiers: Sepsis type: sepsis due to unspecified organism Qualified Code(s): A41.9 - Sepsis, unspecified organism (3) Leukocytosis Current Visit: No Status: Acute Assessment and plan: WBC 34.9. Plan as above. Qualifiers: Leukocytosis type: unspecified Qualified Code(s): D72.829 - Elevated white blood cell count, unspecified (4) IVDU (intravenous drug user) Current Visit: Yes Status: Acute Assessment and plan: Per pt history. (5) Hepatitis C Current Visit: Yes Status: Chronic Assessment and plan: Per pt history. Qualifiers: Viral hepatitis chronicity: acute Hepatic coma status: without hepatic coma Qualified Code(s): B17.10 - Acute hepatitis C without hepatic coma (6) D-dimer, elevated Current Visit: Yes Status: Acute (7) DVT prophylaxis Current Visit: Yes Status: Acute Assessment and plan: Heparin SQ - Time Spent With Patient less than 15 minutes - Constitutional Vitals: Temp Pulse Resp BP Pulse Ox 98.0 F 108 15 115/64 99 04/19/17 10:02 04/19/17 10:02 04/19/17 10:02 04/19/17 10:02 04/19/17 10:02 General appearance: Present: cooperative, mild distress, A&O X 3, pleasant, answers questions appropriately - Head Head exam: Present: normal inspection - Eye Eye exam: Present: normal appearance, conjuntiva pink - ENT ENT exam: Present: mucous membranes moist, normal exam, normal external ear exam - Neck Neck exam general surgery: Present: normal inspection. Absent: lymphadenopathy , tenderness - Respiratory Respiratory exam: Present: CTAB. Absent: rales, respiratory distress, rhonchi, stridor, wheezes, tachypnea - Cardiovascular Cardiovascular exam: Present: RRR, +S1, +S2. Absent: clicks, diastolic murmur, gallop, systolic murmur - GI/Abdominal GI/Abdominal exam: Present: normal bowel sounds, soft. Absent: hepatomegaly, tenderness - Extremities Exam Extremities exam: Present: normal inspection, tenderness, warm - Neurological Exam Neurological exam: Present: alert, oriented X3, no focal deficits. Absent: facial droop, speech deficit - Skin Skin exam: Present: dry, warm. Absent: intact, rash Internal Medicine: Result - Labs CBC & Chem 7: 04/19/17 08:26 04/19/17 08:26 Labs: Short CBC 04/19/17 Range/Units 08:26 WBC 34.9 H* (4.3-11.1) K/mcL Hgb 12.8 L (12.9-16.9) g/dL Hct 36.6 L (37.5-50.1) % Plt Count 347 (140-400) K/mcL BMP 04/19/17 08:26 Sodium 130 L Potassium 3.7 Chloride 102 Carbon Dioxide 23 BUN 6 L Creatinine 0.69 L Glucose 96 Calcium 8.2 L - Impressions Impressions Upper Extremity CT 04/19/17 04:40 IMPRESSION: Diffuse generalized subcutaneous edema that is consistent with cellulitis in the correct clinical setting. Small, indeterminate 2.4 x 1.3 cm fluid collection posterior of the olecranon. Correlate clinical evidence of localized abscess. D/ /19/2017 07:38:52 Alfonso Velasquez MD / [facility] Interpreting Provider: Alfonso Velasquez MD Consult Discharge Plan - Plan Referrals: NONE,PCP [Primary Care Provider] -
[2017-04-19] MEDS ORDERED: Ringers Solution, Lactated 1,000 ML IVC SCH ×2 (11:00→18:48)
[2017-04-19 11:12] LABS: Lymphocytes # 3.5 K/mcL (0.6-4.6); Monocytes # 0.7 K/mcL (0.0-1.3); Neutrophils # 30.7 K/mcL (1.6-8.9); Platelet Estimate Normal (Normal)
[2017-04-19 11:13] LABS: Toxic Granulation Present (Not Present)
--- NOTE | 2017-04-19 11:59 | General Surgery Consult Note ---
Date of Encounter: 04/19/17 Time of Encounter: 10:55 History of Present Illness Consult date: 04/19/17 Reason for consult: other (severe cellulitis right arm, possible abscess) Requesting physician: Dixie Childress History of present illness: 36-year-old male, transferred from [facility] ED after presenting there last evening with painful swelling right arm extending from the antecubital fossa to the wrist. The patient admits to attempting to incise and drain "a blood blister", approximately 5 days ago with a razor, right forearm that developed after he struck the arm on the dashboard of his car. There is a history of IV drug abuse but the patient denies any injections in the right arm. He is right- handed and predominantly injects his left arm. Medical records show a skin abscess/foreign body treated 07/01 and cellulitis of the left upper extremity requiring IV antibiotics in September 2016. Past medical history: Possible endocarditis in the past; IV drug abuse, anxiety , depression, PTSD, asthma and seizure disorder Surgical history: Not provided Allergies: Penicillin, aspirin Medications on presentation include Toradol 10 mg by mouth every 6 hours ( prescribed 04/16/17) Sulfamethoxazole/TMP sulfa 1 by mouth twice a day (also prescribed 04/16/17) Social history: Current every day smoker, 1 pack daily for approximately 20 years; IV drug abuse; patient denies any alcohol consumption On physical examination: Age-appropriate male in acute distress related to the right arm pain and swelling. Multiple cutaneous tattoos are evident; no obvious jaundice The patient was febrile to 102.1 on presentation to [facility]; currently 98 degrees. Pulse 108, respirations 15, blood pressure 115/64. SPO2 on room air 99% Lungs: Clear to auscultation Cardiac: Regular rate, no appreciable murmurs (echocardiogram pending) Abdomen: Soft, nontender, active bowel sounds Extremities: Significant tenderness and swelling right arm from the antecubital fossa to the right wrist. There is pain on passive movement of the elbow and wrist. Swelling extends to a lesser degree into the triceps area. Sensation is intact as are distal pulses. CT: personally reviewed with [facility] - generalized subcutaneous soft tissue edema and inflammation extending from the distal humerus to the radiocarpal joint. Posteriorly to the olecranon is indeterminate fluid collection measuring up to 2.4 x 1.3 cm. This appears to correlate to the bursa usually found in this area but extensive subcutaneous inflammation and its visualization. The ulcerated open wound on the ulnar surface of the proximal forearm is not well visualized. Laboratories: White count 29.6 on presentation to [facility] - this AM the leukocytosis has increased to 34.9. Hemoglobin 12.8, hematocrit 36.6; neutrophil percentage on presentation 24.7 has increased to 30.7%. Electrolytes notable for hyponatremia, 1:30; potassium 3.7, chloride 102, BUN 6, creatinine 0.69. Urine tox screen positive for opiates and amphetamines Hepatitis C antibiotic screen (dated 10/16/16) reactive Impression: 36-year-old male transferred to [facility] for further evaluation and treatment extensive cellulitis involving the right arm. This appears to be related to an attempted incision and drainage of a "blood blister" or hematoma proximal ulnar surface of the right forearm approximately 5 days prior to presentation. The patient will require incision and drainage, however, the patient just completed a meal prior to my presentation to the bedside. He will be NPO except oral meds from this time until surgery can be completed. Incision and drainage of the right forearm is planned. Risks include hemorrhage, infectioin, failure to heal, pain and persistent cellulitis of the right arm. The patient has expressed understanding - consent has been obtained. Past Med Surg Social Fam HX - Past Medical History Medical history: no medical history Psychiatric history: anxiety, depression, PTSD - Past Surgical History Surgical History: other - Social History Smoking Status: Current every day smoker Smokeless Tobacco Status: No Alcohol use: none Drug use: IV Drug Use - Family History Mother Living Status: Still Living Hx Family Respiratory Disorders: Yes (COPD, Emphysema) Father Living Status: Medications and Allergies Ketorolac [Toradol] 10 mg PO Q6HR PRN 04/19/17 [History] Sulfamethoxazole/Trimeth DS [Bactrim DS] 1 tab PO BID 04/19/17 [History] Allergies aspirin [ASA] Allergy (Verified 04/16/17 14:38) Rash Penicillins Adverse Reaction (Verified 04/19/17 07:36) Gastrointestinal Upset Review of Systems All systems PM: A 10-system review of systems was performed and is negative for pertinent findings except as documented above in the HPI. General Surgery Exam Initial Vital Signs Temp Pulse Resp BP Pulse Ox 102.1 F H 108 16 118/71 98 04/19/17 03:56 04/19/17 03:56 04/19/17 03:56 04/19/17 03:56 04/19/17 03:56 Exam Initial Vital Signs Temp Pulse Resp BP Pulse Ox 102.1 F H 108 16 118/71 98 04/19/17 03:56 04/19/17 03:56 04/19/17 03:56 04/19/17 03:56 04/19/17 03:56 Results - Labs 04/19/17 08:26 04/19/17 08:26 Abnormal lab results WBC 34.9 K/mcL (4.3-11.1) H* 04/19/17 08:26 Hgb 12.8 g/dL (12.9-16.9) L 04/19/17 08:26 Hct 36.6 % (37.5-50.1) L 04/19/17 08:26 MPV 9.1 fL (9.4-12.4) L 04/19/17 08:26 Neutrophils # 30.7 K/mcL (1.6-8.9) H 04/19/17 08:26 Toxic Granulation Present (Not Present) A 04/19/17 08:26 Sodium 130 mEq/L (136-145) L 04/19/17 08:26 BUN 6 mg/dL (8-26) L 04/19/17 08:26 Creatinine 0.69 mg/dL (0.72-1.25) L 04/19/17 08:26 Calculated Osmolality 267 (280-300) L 04/19/17 08:26 Calcium 8.2 mg/dL (8.6-10.8) L 04/19/17 08:26 Vancomycin Trough 23.3 mcg/mL (10-20) H* 04/19/17 08:26 Urine Opiates Screen Positive ng/mL (Bzjocj=094) H 04/19/17 06:47 Ur Amphetamines Screen Positive ng/mL (Cuxixc=[id number]) H 04/19/17 06:47 Diabetes panel 04/19/17 Range/Units 08:26 Sodium 130 L (136-145) mEq/L Potassium 3.7 (3.5-4.5) mEq/L Chloride 102 (98-109) mEq/L Carbon Dioxide 23 (19-29) mEq/L BUN 6 L (8-26) mg/dL Creatinine 0.69 L (0.72-1.25) mg/dL Glucose 96 (70-99) mg/dL Calcium 8.2 L (8.6-10.8) mg/dL Calcium panel 04/19/17 Range/Units 08:26 Calcium 8.2 L (8.6-10.8) mg/dL Pituitary panel 04/19/17 Range/Units 08:26 Sodium 130 L (136-145) mEq/L Potassium 3.7 (3.5-4.5) mEq/L Chloride 102 (98-109) mEq/L Carbon Dioxide 23 (19-29) mEq/L BUN 6 L (8-26) mg/dL Creatinine 0.69 L (0.72-1.25) mg/dL Glucose 96 (70-99) mg/dL Calcium 8.2 L (8.6-10.8) mg/dL Adrenal panel 04/19/17 Range/Units 08:26 Sodium 130 L (136-145) mEq/L Potassium 3.7 (3.5-4.5) mEq/L Chloride 102 (98-109) mEq/L Carbon Dioxide 23 (19-29) mEq/L BUN 6 L (8-26) mg/dL Creatinine 0.69 L (0.72-1.25) mg/dL Glucose 96 (70-99) mg/dL Calcium 8.2 L (8.6-10.8) mg/dL All other labs normal. Consult Discharge Plan - Plan Referrals: NONE,PCP [Primary Care Provider] -
--- NOTE | 2017-04-19 16:04 | Anesthesia Evaluation PreOp ---
Date of Encounter: 04/19/17 Time of Encounter: 16:21 - Past History Planned Operation: I&D Right arm Cardiac History: Denies any Significant Hx Pulmonary History: Smoker, Asthma AUDIT INTERN History: Seizures, Other (PTSD) Other Medical History: Other (sepsis due to abscess in right arm) Anesthesia History: No Prior Anesthetic Complications, Past Anesthesia ( appendectomy, ear tubes) Alcohol Use: none Drug use: IV Drug Use Medications and Allergies Ketorolac [Toradol] 10 mg PO Q6HR PRN 04/19/17 [History] Sulfamethoxazole/Trimeth DS [Bactrim DS] 1 tab PO BID 04/19/17 [History] Allergies aspirin [ASA] Allergy (Verified 04/16/17 14:38) Rash Penicillins Adverse Reaction (Verified 04/19/17 07:36) Gastrointestinal Upset - Meds/Allergy Pre-op Review Medications Reviewed: Yes Allergies Reviewed: Yes Beta Blockers on Current Med List: No Anesthesia Results - Labs 04/19/17 08:26 04/19/17 08:26 - Imaging Additional studies: 04-19-17 Echo: Impressions: LVEF 60-65%. Normal left ventricular size and systolic function. Normal diastolic function of the left ventricle. Normal right ventricular size and function. No significant valvular dysfunction. No pulmonary hypertension. Anesthesia Exam Last Vital Signs Temp 98.2 F 04/19/17 15:30 Pulse 83 04/19/17 15:30 Resp 25 04/19/17 15:30 BP 104/70 04/19/17 15:30 Pulse Ox 98 04/19/17 15:30 Weight: 87 kg NPO (# of Hours): 8 hrs - HEENT Pupil (Motor): Pupils equal, EOMI Mallampati: III Teeth: Normal Oral Opening: Greater than 3 - AUDIT INTERN LOC: Oriented AUDIT INTERN Motor: Normal RUE, Normal LUE, Normal RLE, Normal LLE, Normal Face - Cardiac Rhythm: Regular Murmur: None - Pulmonary Breath Sounds: bilateral Clear Respiratory Effort: Symmetrical Anesthesia Assess/Plan ASA Score: 3 (sepsis, IVDU, PTSD, smoking) Modified [place] Scale for Level of Consciousness: Cooperative, oriented, and tranquil Anesthetic Plan: General Monitoring Plan: Standard Monitors Recovery Plan: PACU
--- NOTE | 2017-04-19 16:10 | Infectious Disease Consult ---
Date of Encounter: 04/19/17 Time of Encounter: 16:08 Assessment and Plan (1) Severe sepsis Status: Acute Assessment and plan: 3 SIRS criteria plus AMS secondary to cellulitis (2) Abscess Status: Acute Assessment and plan: RUE noted on CT from 04/19/17 causative organism not clear going for I&D on 04/19/17 agree with broad spectrum antibiotics (vancomycin and meropenem) goal vancomycin trough 10-15 please send intra op cultures await blood cultures to finalize (3) Allergy to penicillin Status: Acute Assessment and plan: in the record it mentions upset stomach but patient tells me he had angioedema about 20 years ago (4) IVDU (intravenous drug user) Status: Acute (5) Hepatitis C Status: Chronic Qualifiers: Viral hepatitis chronicity: chronic Hepatic coma status: without hepatic coma Qualified Code(s): B18.2 - Chronic viral hepatitis C (6) Right arm cellulitis Status: Acute Assessment and plan: 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 Pruitt is a 36 year old male Patient is a 36-year-old gentleman admitted to [place] on 04/19/2017 with cellulitis in the right upper extremity, we are consulted for antibiotic recommendations. Patient is a 36-year-old gentleman with history of IV drug use last used 2 months ago as per patient and history of hepatitis C that was recently diagnosed also has history of recurrent cellulitis in the hand on the left side came in to the emergency department with pain and swelling redness in the right upper extremity. Patient tells me that about a week prior to admission he his arm and the had a blood blister that he try to manipulate himself. Patient adamantly denies using IV drug use in the arm. Patient states that he started having swelling pain and redness and eventually came to the emergency department for evaluation. Patient was seen at an outlying facility and transferred here for further workup and evaluation. Since admission patient has been in severe sepsis. MAXIMUM TEMPERATURE was 102.3 , tachycardia, WBC of 35,000 with 88% neutrophils no bands. Urine drug screen was positive for opiates and amphetamines. Patient had a CT of the right upper extremity which revealed generalized subcutaneous edema with cellulitis and a small indeterminate 2.41.3 cm fluid collection of the posterior olecranon. Patient was started empirically on vancomycin and meropenem and is being taken today for I&D by Dr. ellis. CT chest was also done and came back negative for any acute process. An echocardiogram was ordered and it showed no acute process either with good left ventricular ejection fraction and normal left ventricular size and systolic function. Currently patient laying in bed appears toxic very weak heart to arouse hell wake up answer some questions and then go back to sleep. I spoke with the nursing staff who told me they did not give him any narcotics and only thing they gave him all day was Toradol and Tylenol. CC: Kevin Menezes-Edin Past Med Surg Social Fam HX - Past Medical History Medical history: no medical history Psychiatric history: anxiety, depression, PTSD - Past Surgical History Surgical History: other - Social History Smoking Status: Current every day smoker Smokeless Tobacco Status: No Alcohol use: none Drug use: IV Drug Use - Family History Mother Living Status: Still Living Hx Family Respiratory Disorders: Yes (COPD, Emphysema) Father Living Status: Infectious Disease-CN:Meds Ketorolac [Toradol] 10 mg PO Q6HR PRN 04/19/17 [History] Sulfamethoxazole/Trimeth DS [Bactrim DS] 1 tab PO BID 04/19/17 [History] Allergies aspirin [ASA] Allergy (Verified 04/16/17 14:38) Rash Penicillins Adverse Reaction (Verified 04/19/17 07:36) Gastrointestinal Upset Review of systems: 10 point review of systems done, negative other for what mentioned in history of present illness. Exam - Constitutional Vitals: Temp Pulse Resp BP Pulse Ox 98.2 F 83 25 104/70 98 04/19/17 15:30 04/19/17 15:30 04/19/17 15:30 04/19/17 15:30 04/19/17 15:30 General appearance: febrile, disheveled, mild distress - Head Head exam: Present: atraumatic, normocephalic - Eye Eye exam: Present: EOMI, PERRL Additional comments: no conjunctival hemorrhage. sclera anicteric - ENT ENT exam: Present: mucous membranes dry - Neck Neck exam: Present: full ROM. Absent: tenderness - Respiratory Respiratory exam: Present: CTAB. Absent: wheezes - Cardiovascular Cardiovascular exam: Present: RRR, +S1, +S2 Additional comments: no murmur - GI/Abdominal GI/Abdominal exam: Present: normal bowel sounds, soft, tenderness - Extremities Exam Additional comments: swelling of the right upper extremity arm and the forearm. slightly decreased range of motion of the elbow - Neurological Exam Neurological exam: Present: alert, oriented X3 Additional comments: hard to arouse, and keeps going back to sleep - Skin Additional comments: small lesions on this neck which appear to be scabs Infectious Disease CN: Results - Labs CBC & Chem 7: 04/19/17 08:26 04/19/17 08:26 Consult Discharge Plan - Plan Referrals: NONE,PCP [Primary Care Provider] -
[2017-04-19] MEDS ORDERED: Lidocaine -MPF 4% 5 ML AMPUL ONE (16:16)
[2017-04-19] MEDS ORDERED: *HR* Midazolam HCl 2 MG/2 ML VIAL ONE (16:17)
[2017-04-19] MEDS ORDERED: *HR* FentaNYL (PF) 100 MCG/2 ML VIAL ONE (16:18)
[2017-04-19] MEDS ORDERED: *HR* Rocuronium Bromide 50 MG/5 ML VIAL ONE (16:20)
[2017-04-19] MEDS ORDERED: *HR* Succinylcholine 200 MG/10 ML VIAL IVP ONE (16:20)
[2017-04-19] MEDS ORDERED: Dexamethasone 4 MG/ML VIAL ONE (16:22)
[2017-04-19] MEDS ORDERED: *HR* HYDROmorphone (PF) 1 MG/ML SYRINGE IVP PRN (17:31)
[2017-04-19] MEDS ORDERED: Ondansetron 4 MG/2 ML VIAL IVP ONE ×2 (17:31→18:48)
[2017-04-19] MEDS ORDERED: Ipratropium/Albuterol Neb 3 ML ONE (17:52)
--- NOTE | 2017-04-19 18:10 | Operative Note ---
Date of procedure: 04/19/17 Pre-op diagnosis: abscess right arm with extensive cellulitis Post-op diagnosis: same Procedure: Incision and drainage abcess right forearm Complications: none apparent Anesthesia: NAHOMYA Surgeon: Sourav Miles Estimated blood loss (cc): 20 IV fluids (cc): 1,300 Specimen: aerobic and anaerobic cultures Condition: stable Disposition: PACU Procedure in Detail: The patient was brought to the operating room and placed supine on the operating room table. Patient was appropriately identified as to person, procedure, and laterality. The accuracy of this information was confirmed by the procedure team. The patient was then intubated and anesthetized under the supervision of Dr. Fan. Right arm was prepped and draped in usual sterile fashion. An ulcerated lesion was apparent along the proximal ulnar surface of the right forearm. Maximal duration and fluctuation was located surrounding this ulcerated lesion. A longitudinal incision placed through the ulcerated lesion immediately encountering pus. Aerobic and anaerobic cultures were obtained. It was necessary to extend the incision distally as it became apparent that the abscess extended in this direction. The surrounding tissues were inspected and debrided of any necrotic tissue. The wound was then irrigated with 6 L sterile saline using a pulsatile irrigation system (PulsaVac Plus). The wound was then packed with half-inch iodophor gauze covered by dry sterile gauze followed by Chuy. A final application of a conform dressing was applied to keep the dressing in place. The patient was taken to recovery in stable condition. Needle, sponge, and instrument counts were correct at the close of the case.
[2017-04-19] MEDS ORDERED: Acetaminophen IV 1,000 MG/100 ML INFUS..BTL IVPB ONE (18:25)
[2017-04-19] MEDS ORDERED: Acetaminophen IV 1,000 MG/100 ML INFUS..BTL ONE (18:27)
--- NOTE | 2017-04-19 18:30 | Anesthesia Evaluation Post Op ---
Date of Encounter: 04/19/17 Time of Encounter: 18:30 - Vital Signs Vital Signs: Last Vital Signs Temp 100.7 F H 04/19/17 18:23 Pulse 104 04/19/17 18:23 Resp 30 04/19/17 18:23 BP 119/78 04/19/17 18:23 Pulse Ox 95 04/19/17 18:23 - Lungs Lungs: Clear Ascult./Percussion - Airway Airway: Non-obstructed - Cardiovascular Regular Rate - Mental Status Mental Status: Alert & Oriented, Answers Appropriately - Pain Pain Scale: 8 - Nausea Vomiting Nausea Vomiting: Not Present - Hydration Hydration: NPO - Discharge PostOp Status: Transfer Patient to floor
--- NOTE | 2017-04-19 18:34 | Venous Imaging Report ---
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 Left upper extremity: normal contralateral exam. Recommendations: After imaging the patient returned to their room. Critical findings reported to labor/excavator in person by Johnny Bello RDCS. Findings Venous Duplex Results: Right: Venous imaging of the upper extremity reveals full patency and normal vessel compressibility of the right jugular, right subclavian, right axillary, right brachial, right radial and right ulnar. Doppler signals in the evaluated veins were normal. The right cephalic demonstrates a compressible vein. Flow was continuous and it did augment. The right basilic demonstrates a compressible vein. Flow was continuous and it did augment. Left: Venous imaging of the upper extremity reveals full patency and normal vessel compressibility of the left subclavian. Doppler signals in the evaluated veins were normal. Upper Extremity Venous Duplex Side Vein Compress Spontaneous Flow Augment Right Jugular Normal Yes Phasic Yes Right Subclavian Normal Yes Phasic Yes Right Axillary Normal Yes Phasic Yes Right Brachial Normal Yes Phasic Yes Right Cephalic Normal Yes Continuous Yes Right Basilic Normal Yes Continuous Yes Right Radial Normal Yes Phasic Yes Right Ulnar Normal Yes Phasic Yes Left Subclavian Normal Yes Phasic Yes Updated by Roberto Lerma MD, FACS on 04/19/2017 6:29:46 PM Roberto Lerma MD electronically signed on 04/19/2017 6:29:59 PM with status of Final
[2017-04-19] MEDS: Meropenem 1,000 MG in 0.9 % Sodium Chloride Mini Bag 100 ML IVPB SCH (21:09)
[2017-04-20] MEDS ORDERED: Meropenem 1,000 MG in 0.9 % Sodium Chloride Mini Bag 100 ML IVPB SCH
[2017-04-20] MEDS: Acetaminophen 325 MG TABLET PO PRN ×3 (01:10→16:26)
[2017-04-20] MEDS: Meropenem 1,000 MG in 0.9 % Sodium Chloride Mini Bag 100 ML IVPB SCH ×3 (04:55→22:22)
[2017-04-20 07:56] LABS: BUN/Creatinine Ratio 10 (6-26); Blood Urea Nitrogen 7 mg/dL (8-26); Calcium 8.5 mg/dL (8.6-10.8); Carbon Dioxide 19 mEq/L (19-29); Chloride 108 mEq/L (98-109); Glucose 150 mg/dL (70-99); Osmolality,Calculated 283 (280-300); Sodium 136 mEq/L (136-145); eGFR For African Americans > 60 (> 60); eGFR For Non-African Americans > 60 (> 60)
[2017-04-20 08:01] LABS: Hemoglobin 12.8 g/dL (12.9-16.9); Red Cell Distribution Width 13.2 % (11.5-14.5)
[2017-04-20 08:03] LABS: Hematocrit 37.7 % (37.5-50.1); Mean Corpuscular Hemoglobin 29.2 pg (28.0-33.3); Mean Corpuscular Volume 85.9 fL (83.0-100.0); Mean Platelet Volume 10.5 fL (9.4-12.4); Platelet Count 359 K/mcL (140-400); Red Blood Count 4.39 M/mcL (4.19-5.50)
[2017-04-20 08:05] LABS: Potassium 5.7 mEq/L (3.5-4.5)
[2017-04-20] MEDS: Vancomycin 1,250 MG in D5% in Water 250 ML IVPB SCH (08:37)
[2017-04-20] MEDS ORDERED: 0.9 % Sodium Chloride 1,000 ML IVC SCH (08:45)
[2017-04-20 09:16] LABS: Lymphocytes # 2.7 K/mcL (0.6-4.6); Monocytes # 0.9 K/mcL (0.0-1.3); Platelet Estimate Normal (Normal)
--- NOTE | 2017-04-20 11:09 | Internal Med Progress Note ---
Date of Encounter: 04/20/17 Time of Encounter: 08:00 - Assessment and plan (1) Cellulitis Current Visit: Yes Status: Acute Assessment and plan: Pt with extensive cellulitis to RUE. Pt with limited ROM to elbow and wrist. Pt had surgical I and D yesterday, cultures obtained at that time. Pt has leukocytosis and has been started on Vancomycin and Meropenem, continue current treatment. Qualifiers: Site of cellulitis: extremity Site of cellulitis of extremity: upper extremity Laterality: right Qualified Code(s): L03.113 - Cellulitis of right upper limb (2) Sepsis Current Visit: Yes Status: Acute Assessment and plan: Pt with extensive cellulitis to RUE and surgical I and D yesterday. WBC 44.6. Pt has been afebrile since yesterday, but remains tachycardic. Normotensive. Continue Vancomycin and Meropenem IV. Pt is allergic to PCN. IVF boluses for fluid resuscitation and maintenance IVF LR Avid Editor labs and VS Qualifiers: Sepsis type: sepsis due to unspecified organism Qualified Code(s): A41.9 - Sepsis, unspecified organism (3) Leukocytosis Current Visit: No Status: Acute Assessment and plan: Plan as above. Qualifiers: Leukocytosis type: unspecified Qualified Code(s): D72.829 - Elevated white blood cell count, unspecified (4) IVDU (intravenous drug user) Current Visit: Yes Status: Acute Assessment and plan: Per pt history. (5) Hepatitis C Current Visit: Yes Status: Chronic Assessment and plan: Per pt history. Qualifiers: Viral hepatitis chronicity: chronic Hepatic coma status: without hepatic coma Qualified Code(s): B18.2 - Chronic viral hepatitis C (6) D-dimer, elevated Current Visit: Yes Status: Acute Assessment and plan: CTA chest negative for PE. Elevated due to sepsis/infection. (7) DVT prophylaxis Current Visit: Yes Status: Acute Assessment and plan: Heparin SQ - Time Spent With Patient less than 15 minutes - Subjective Interval history: Pt was seen and assessed at about 0800. He is alert and awake and states that he feels some better than he did yesterday and states that his arm is still painful. - Constitutional Vitals: Temp Pulse Resp BP Pulse Ox 98.4 F 91 16 116/74 97 04/20/17 07:07 04/20/17 07:07 04/20/17 07:07 04/20/17 07:07 04/20/17 07:07 General appearance: Present: cooperative, mild distress, A&O X 3, pleasant, answers questions appropriately - Head Head exam: Present: normal inspection - Eye Eye exam: Present: normal appearance, nystagmus, conjuntiva pink - ENT ENT exam: Present: mucous membranes moist, normal exam, normal external ear exam - Neck Neck exam general surgery: Present: normal inspection. Absent: lymphadenopathy , tenderness - Respiratory Respiratory exam: Present: decreased breath sounds, CTAB. Absent: rales, respiratory distress, rhonchi, stridor, wheezes - Cardiovascular Cardiovascular exam: Present: RRR, +S1, +S2. Absent: clicks, distant heart sounds, gallop, systolic murmur - GI/Abdominal GI/Abdominal exam: Present: normal bowel sounds, soft. Absent: hepatomegaly, tenderness - Extremities Exam Extremities exam: Present: normal capillary refill, normal inspection, warm, radial pulses palpable and symetrical. Absent: pedal edema, tenderness - Neurological Exam Neurological exam: Present: alert, oriented X3, no focal deficits. Absent: facial droop, speech deficit - Skin Skin exam: Present: dry, intact, warm. Absent: rash Internal Medicine: Result - Labs CBC & Chem 7: 04/20/17 07:04 04/20/17 08:46 Labs: Short CBC 04/19/17 04/20/17 Range/Units 08:26 07:04 WBC 44.6 H* (4.3-11.1) K/mcL Hgb 12.8 L (12.9-16.9) g/dL Hct 37.7 (37.5-50.1) % Plt Count 359 (140-400) K/mcL Neutrophils # 30.7 H 41.0 H (1.6-8.9) K/mcL BMP 04/20/17 04/20/17 07:04 08:46 Sodium 136 Potassium 5.7 H D 4.2 D Chloride 108 Carbon Dioxide 19 BUN 7 L Creatinine 0.69 L Glucose 150 H Calcium 8.5 L - Impressions Impressions Upper Extremity CT 04/19/17 04:40 IMPRESSION: Diffuse generalized subcutaneous edema that is consistent with cellulitis in the correct clinical setting. Small, indeterminate 2.4 x 1.3 cm fluid collection posterior of the olecranon. Correlate clinical evidence of localized abscess. D/ / 04/19/2017 07:38:52 Alfonso Velasquez MD / gen Interpreting Provider: Alfonso Velasquez MD Echocardiogram 04/19/17 05:03 Impressions: LVEF 60-65%. Normal left ventricular size and systolic function. Normal diastolic function of the left ventricle. Normal right ventricular size and function. No significant valvular dysfunction. No pulmonary hypertension. Left Ventricular Wall Motion: Rest Echo Findings All wall segments showed normal motion. Findings: Study Quality * Technically adequate exam. ECG Findings * Normal sinus rhythm/sinus tachycardia HR low 100's. Left Ventricle * LVEF 60-65%. * Normal LV chamber size, wall thickness and function. * Normal left ventricular diastolic function. Aortic Valve * No aortic regurgitation. * Not all leaflets were well visualized. Probably trileaflet. * Normal aortic valve structure. * No aortic stenosis. Mitral Valve * No mitral regurgitation. * Normal mitral valve structure. * No mitral stenosis. Tricuspid Valve * Normal tricuspid valve structure. * Trace tricuspid regurgitation. * Estimated RA pressure is 3 mmHg. Pulmonic Valve * Pulmonic valve is not well visualized. * No pulmonic stenosis. * No pulmonic regurgitation. Pulmonary Artery * Pulmonary artery not well visualized. Left Atrium * Normal left atrial size. Right Atrium * Normal right atrial size. Right Ventricle * Normal right ventricular structure and function. Interatrial Septum * No evidence of PFO by color Doppler. Pericardium * There is no pericardial effusion present. IVC * The IVC is not dilated. Aorta * Normally sized aortic root. Chest CTA 04/19/17 13:30 IMPRESSION: 1. No findings of pulmonary embolism. 2. Mild right ventricular hypertrophy and mild concentric left ventricular hypertrophy without cardiomegaly. 3. Partially included subcutaneous stranding about the right shoulder likely representing cellulitis given the appearance of the right upper extremity on the earlier CT. 4. Likely reactive right level 1 axillary lymphadenopathy. D/ / Daljit Turner MD / Daljit Turner MD Interpreting Provider: Daljit Turner MD - VTE Documentation of Mechanical Device: Intermittent pneumatic compression device Consult Discharge Plan - Plan Referrals: NONE,PCP [Primary Care Provider] -
--- NOTE | 2017-04-20 12:48 | General Surgery Progress Note ---
Date of Encounter: 04/20/17 Time of Encounter: 12:44 Subjective Patient reports: feels better Narrative: General Surgery - POD #1 patient feeling better; arm swelling significantly diminished Maximum temperature 99.1; pulse 84, respirations 16, blood pressure 99/56 No significant drainage on the surgical dressing.. The surgical dressing was removed. The packing placed within the wound was intact. The wound was redressed with 4 x 4's and Kerlix. Laboratories: Leukocytosis has increased to 44.6 (previously 34.9); neutrophil percentage is also increased to 41% -likely response to surgery and the wound manipulation hemoglobin 12.8, hematocrit 37.7; platelets 359,000 Electrolytes, BUN and creatinine within normal limits. Impression: Abscess right forearm - status post incision and drainage. Very nice response to wound debridement and decompression. Recommendations: Continue IV antibiotics Change dressing as needed Repeat CBC in a.m. Objective Vital Signs - Last 8 Hours Temp Pulse Resp BP Pulse Ox 04/20/17 11:37 98.2 F 84 16 99/56 98 04/20/17 07:07 98.4 F 91 16 116/74 97 Intake and Output 04/19/17 04/20/17 04/20/17 23:59 07:59 15:59 Intake Total 450 / 450 240 / 240 Output Total 1420 / 1420 1275 / 1275 1700 / 1700 Balance -1420 / -1420 -825 / -825 -1460 / -1460 Intake: IV Fluids 450 / 450 Merrem 1,000 MG In 0.9 % 200 / 200 Sodium Chloride (Mini-Bag +) 100 ML @ 200 mls/hr IVPB Q8H INDIRA Rx#: [id number] Vancocin 1,250 MG In 250 / 250 Dextrose 5% 250 ML @ 166. 67 mls/hr IVPB Q8H INDIRA Rx #:[id number] Oral 240 / 240 Output: Urine 1400 / 1400 1275 / 1275 1700 / 1700 Estimated Blood Loss 20 / 20 Other: Meal Breakfast Percent of Meal Consumed 100% # Voids 1 Weight 87.09 kg Patient Weight 04/20/17 23:59 Weight 87.09 kg - Labs 04/20/17 07:04 04/20/17 08:46 Diabetes panel 04/20/17 04/20/17 Range/Units 07:04 08:46 Sodium 136 (136-145) mEq/L Potassium 5.7 H D 4.2 D (3.5-4.5) mEq/L Chloride 108 (98-109) mEq/L Carbon Dioxide 19 (19-29) mEq/L BUN 7 L (8-26) mg/dL Creatinine 0.69 L (0.72-1.25) mg/dL Glucose 150 H (70-99) mg/dL Calcium 8.5 L (8.6-10.8) mg/dL Calcium panel 04/20/17 Range/Units 07:04 Calcium 8.5 L (8.6-10.8) mg/dL Pituitary panel 04/20/17 04/20/17 Range/Units 07:04 08:46 Sodium 136 (136-145) mEq/L Potassium 5.7 H D 4.2 D (3.5-4.5) mEq/L Chloride 108 (98-109) mEq/L Carbon Dioxide 19 (19-29) mEq/L BUN 7 L (8-26) mg/dL Creatinine 0.69 L (0.72-1.25) mg/dL Glucose 150 H (70-99) mg/dL Calcium 8.5 L (8.6-10.8) mg/dL Adrenal panel 04/20/17 04/20/17 Range/Units 07:04 08:46 Sodium 136 (136-145) mEq/L Potassium 5.7 H D 4.2 D (3.5-4.5) mEq/L Chloride 108 (98-109) mEq/L Carbon Dioxide 19 (19-29) mEq/L BUN 7 L (8-26) mg/dL Creatinine 0.69 L (0.72-1.25) mg/dL Glucose 150 H (70-99) mg/dL Calcium 8.5 L (8.6-10.8) mg/dL - VTE Documentation of Mechanical Device: Intermittent pneumatic compression device Consult Discharge Plan - Plan Referrals: NONE,PCP [Primary Care Provider] -
[2017-04-20] MEDS: Vancomycin 1,750 MG in D5% in Water 500 ML IVPB SCH ×2 (15:04→23:34)
[2017-04-21] MEDS ORDERED: 0.9 % Sodium Chloride 1,000 ML IVC ONE (01:10)
[2017-04-21] MEDS ORDERED: 0.9 % Sodium Chloride 2,000 ML ONE (01:13)
[2017-04-21] MEDS: 0.9 % Sodium Chloride 1,000 ML IVC SCH ×2 (02:44→10:54)
[2017-04-21 03:53] LABS: Basophils % 0.2 %; Eosinophils % 0.6 %
[2017-04-21 03:55] LABS: Basophils # 0.1 K/mcL (0.0-0.2); Eosinophils # 0.2 K/mcL (0.0-0.6); Hematocrit 34.4 % (37.5-50.1); Hemoglobin 11.4 g/dL (12.9-16.9); Immature Granulocytes % 1.5 % (0-4); Lymphocytes # 2.8 K/mcL (0.6-4.6); Lymphocytes % 9.8 %; Mean Corpuscular HGB Conc 33.1 g/dL (31.6-35.5); Mean Corpuscular Hemoglobin 28.9 pg (28.0-33.3); Mean Corpuscular Volume 87.1 fL (83.0-100.0); Mean Platelet Volume 9.3 fL (9.4-12.4); Monocytes # 1.7 K/mcL (0.0-1.3); Neutrophils # 23.3 K/mcL (1.6-8.9); Platelet Count 473 K/mcL (140-400); Red Blood Count 3.95 M/mcL (4.19-5.50); Red Cell Distribution Width 13.2 % (11.5-14.5); Segmented Neutrophils % 81.9 %
[2017-04-21 04:25] LABS: Anisocytosis 1+ (Not Present)
[2017-04-21] MEDS: Acetaminophen 325 MG TABLET PO PRN (05:40)
[2017-04-21] MEDS: Meropenem 1,000 MG in 0.9 % Sodium Chloride Mini Bag 100 ML IVPB SCH ×2 (05:40→13:47)
[2017-04-21] MEDS: Vancomycin 1,750 MG in D5% in Water 500 ML IVPB SCH (06:22)
--- NOTE | 2017-04-21 11:08 | Internal Med Progress Note ---
Date of Encounter: 04/21/17 Time of Encounter: 10:45 - Assessment and plan (1) Cellulitis Current Visit: Yes Status: Acute Assessment and plan: Pt with extensive cellulitis to RUE. ROM to wrist, elbow and shoulder has returned. Wound culture grew Staph A. Pt is no Vancomycin and Meropenem IV. Continue treatment. Surgery if following for surgical wound. Qualifiers: Site of cellulitis: extremity Site of cellulitis of extremity: upper extremity Laterality: right Qualified Code(s): L03.113 - Cellulitis of right upper limb (2) Sepsis Current Visit: Yes Status: Acute Assessment and plan: Leukocytosis remains, is improving. WBC 28.5. He has been afebrile, but is still tachycardic, with source from wound on right forearm from IVDU. Plan as above. IVF hydration, boluses as needed. Qualifiers: Sepsis type: sepsis due to unspecified organism Qualified Code(s): A41.9 - Sepsis, unspecified organism (3) Leukocytosis Current Visit: No Status: Acute Assessment and plan: Plan as above. Improving Qualifiers: Leukocytosis type: unspecified Qualified Code(s): D72.829 - Elevated white blood cell count, unspecified (4) IVDU (intravenous drug user) Current Visit: Yes Status: Acute Assessment and plan: Per pt history. (5) Hepatitis C Current Visit: Yes Status: Chronic Assessment and plan: Per pt history. Qualifiers: Viral hepatitis chronicity: chronic Hepatic coma status: without hepatic coma Qualified Code(s): B18.2 - Chronic viral hepatitis C (6) D-dimer, elevated Current Visit: Yes Status: Acute Assessment and plan: CTA chest negative for PE. Elevated due to sepsis/infection. (7) DVT prophylaxis Current Visit: Yes Status: Acute Assessment and plan: Heparin SQ - Time Spent With Patient less than 15 minutes - Subjective Interval history: Pt was seen and assessed at about 1045. Pt sleeping, arouses easily, remains drowsy. He states that he is still having pain, but it is some better. - Constitutional Vitals: Temp Pulse Resp BP Pulse Ox 98.7 F 105 16 128/69 99 04/21/17 07:11 04/21/17 07:11 04/21/17 07:11 04/21/17 07:11 04/21/17 07:11 General appearance: Present: cooperative, A&O X 3, pleasant, no acute distress, answers questions appropriately - Head Head exam: Present: normal inspection - Eye Eye exam: Present: normal appearance, conjuntiva pink - ENT ENT exam: Present: mucous membranes moist, normal exam, normal external ear exam - Neck Neck exam general surgery: Present: normal inspection. Absent: lymphadenopathy , tenderness - Respiratory Respiratory exam: Present: CTAB. Absent: chest wall tenderness, rales, respiratory distress, rhonchi, stridor, wheezes - Cardiovascular Cardiovascular exam: Present: RRR, +S1, +S2. Absent: diastolic murmur, systolic murmur - GI/Abdominal GI/Abdominal exam: Present: normal bowel sounds, soft. Absent: distended, hepatomegaly, tenderness - Extremities Exam Extremities exam: Present: normal capillary refill, normal inspection, warm, radial pulses palpable and symetrical. Absent: pedal edema, tenderness - Neurological Exam Neurological exam: Absent: altered, facial droop, speech deficit - Skin Skin exam: Present: dry, intact, warm Internal Medicine: Result - Labs CBC & Chem 7: 04/21/17 03:14 04/20/17 08:46 Labs: Short CBC 04/21/17 Range/Units 03:14 WBC 28.5 H (4.3-11.1) K/mcL Hgb 11.4 L (12.9-16.9) g/dL Hct 34.4 L (37.5-50.1) % Plt Count 473 H (140-400) K/mcL Neutrophils # 23.3 H (1.6-8.9) K/mcL - VTE Documentation of Mechanical Device: Intermittent pneumatic compression device Consult Discharge Plan - Plan Referrals: NONE,PCP [Primary Care Provider] -
[2017-04-21] MEDS ORDERED: Vancomycin 1,500 MG in D5% in Water 250 ML IVPB SCH (15:00)
[2017-04-21 15:21] VITALS: BP 119/75
--- NOTE | 2017-04-21 16:11 | General Surgery Progress Note ---
Date of Encounter: 04/21/17 Time of Encounter: 16:05 Subjective Patient reports: still having pain Narrative: General surgery - POD #2 patient continues to complain of right arm pain. Swelling continues to diminish Maximum temp 99.8; pulse has diminished to 76; RR 18, BP 119/75 Wound is clean and healing well - packing removed. Dry sterile gauze dressing applied. White count has improved to 28.5, (previously 44.6); neutrophils have reduced to 23.3% (prev 41%) Cultures positive for staph aureus - sensitive to: Cipro, doxycycline, gentamicin, Levaquin, linezolid, moxifloxacin, rifampin, tetracycline, TMP sulfa , daptomycin, and vancomycin Recommendations : begin BID wound irrigations with 1/2 strength hydrogen peroxide. Objective Vital Signs - Last 8 Hours Temp Pulse Resp BP Pulse Ox 04/21/17 15:20 98.7 F 76 18 119/75 99 04/21/17 11:28 98.4 F 76 16 117/71 99 Intake and Output 04/21/17 04/21/17 04/21/17 07:59 15:59 23:59 Intake Total 2700 / 2700 1979 / 1979 Balance 2700 / 2700 1979 Intake: IV Fluids 1700 / 1700 1500 / 1500 0.9 % Sodium Chloride 1, 1000 / 1000 1000 / 1000 000 ML @ 125 mls/hr IVC . Q8H INDIRA Rx#:[id number] Merrem 1,000 MG In 0.9 % 200 / 200 Sodium Chloride (Mini-Bag +) 100 ML @ 200 mls/hr IVPB Q8H INDIRA Rx#: [id number] Vancocin 1,750 MG In 500 / 500 500 / 500 Dextrose 5% 500 ML @ 333. 34 mls/hr IVPB Q8H INDIRA Rx #:[id number] Oral 1000 / 1000 480 / 480 Other: Meal Breakfast Percent of Meal Consumed 100% Weight 86.228 kg Patient Weight 04/21/17 23:59 Weight 86.228 kg - Labs 04/21/17 03:14 04/20/17 08:46 - VTE Documentation of Mechanical Device: Intermittent pneumatic compression device Consult Discharge Plan - Plan Referrals: NONE,PCP [Primary Care Provider] -
[2017-04-21] MEDS ORDERED: Aminoglycoside Consult 1 EACH MC ONE (17:14)
--- NOTE | 2017-05-17 18:29 | Discharge Summary ---
Date of Encounter: 05/17/17 Time of Encounter: 10:45 - Discharge Diagnosis (1) Cellulitis Priority: Primary Status: Acute Comments: Patient with extensive cellulitis right upper extremity, patient has returned range of motion of wrist, elbow, shoulder on right upper extremity. Wound culture grew staph A. Patient is already on vancomycin and meropenem IV. Surgery is following for surgical wound. Qualifiers: Site of cellulitis: extremity Site of cellulitis of extremity: upper extremity Laterality: right Qualified Code(s): L03.113 - Cellulitis of right upper limb (2) Sepsis Priority: Secondary Status: Acute Comments: Leukocytosis remained, is improving white count 28.5 today. He was afebrile, still tachycardic with source of infection from [place] right forearm from IVDU. Qualifiers: Sepsis type: sepsis due to unspecified organism Qualified Code(s): A41.9 - Sepsis, unspecified organism (3) Leukocytosis Priority: Secondary Status: Inactive Comments: White count 28.5. Qualifiers: Leukocytosis type: unspecified Qualified Code(s): D72.829 - Elevated white blood cell count, unspecified (4) IVDU (intravenous drug user) Priority: Secondary Status: Chronic Comments: Patient admitted to injecting heroin, however she states that this site is not one of the sites he used. (5) Hepatitis C Priority: Secondary Status: Chronic Qualifiers: Viral hepatitis chronicity: chronic Hepatic coma status: without hepatic coma Qualified Code(s): B18.2 - Chronic viral hepatitis C (6) D-dimer, elevated Priority: Secondary Status: Acute Comments: Elevated due to sepsis/infection. CTA was negative for PE. (7) DVT prophylaxis Priority: Secondary Status: Acute Comments: Heparin subcutaneous. Patient was ambulatory. - Discharge Medications Prescriptions: Levofloxacin [Levaquin] 750 mg PO DAILY #7 tablet Home Medications: Ketorolac [Toradol] 10 mg PO Q6HR PRN 04/19/17 [History] Sulfamethoxazole/Trimeth DS [Bactrim DS] 1 tab PO BID 04/19/17 [History] Levofloxacin [Levaquin] 750 mg PO DAILY #7 tablet 04/21/17 [Rx] Allergies/Adverse Reactions: 3 Allergy/AdvReac Type Severity Reaction Status Date / Time aspirin [ASA] Allergy Rash Verified 04/16/17 14:38 NSAIDS (Non-Steroidal Allergy Rash Verified 04/21/17 01:55 Anti-Inflamma Penicillins AdvReac Gastrointestinal Verified 04/19/17 07:36 Upset Date of admission: 04/19/17 05:08 Primary care physician: PCP NONE Consults: 04/19/17 09:19 Consult to Surgery [CONS] Routine Consulting Provider: Surgery [facility] Reason for Consult: abscess R elbow Time Notified: 09:22 Call Completed: Yes 04/19/17 11:04 Consult to Invasive Line Access Team [CONS] Routine Reason for Consult: Limited access Line Type: EPIV 04/19/17 11:30 Consult to Windows Server Support Technician [CONS] Routine Reason for SW Consult: discharge planning 04/19/17 15:37 Consult to Infectious Diseases [CONS] Routine Consulting Provider: Infectious Disease [facility] Reason for Consult: Sepsis, meropenem Call Completed: Yes Discharging clinician: Dixie Childress Anticipated date of discharge: 05/17/17 - Patient Status Disposition: Left Against Medical Advice Condition: Good Functional capacity at discharge: independent ambulation Overall status at discharge: patient is progressing back to baseline - Discharge Instructions Follow Up With: NONE,PCP [Primary Care Provider] - Interval History: This is a late entry. Patient was admitted from 04/19/2017 to 04/21/2017. This entry is on 05/17/2017. Mr. Pruitt is a 36-year-old male with a history of IV drug use, hepatitis C, who presented to the emergency department with complaint of right arm swelling, he was transferred from an outside facility. Patient reports that 3 days prior to admission, he hit his proximal aspect of right forearm on the dashboard of his car and developed a blister, which he then opened with a razor. Thereafter he developed swelling, redness, pain. He went to urgent care was prescribed Bactrim and Toradol, however did not improve the pain or swelling which actually increased to where he was not able to flex his elbow past 80 degrees. He returned to the emergency department with fever, chills. He states that his last IV drug use of heroin was 2 weeks prior to this admission and that he normally used his left forearm to inject. Patient was admitted and treated with vancomycin, fluids, and pain medication. Blood cultures were drawn before he was transferred to this hospital. He presented with tachycardia, fever, white blood count of 27, and no source of infection and was septic on admission. He should have an elevated d-dimer, in the setting of sepsis and known infection., CTA chest was negative for PE. During admission patient had an echocardiogram that showed an LVEF of 6065% with normal systolic function, normal diastolic function and no significant valvular dysfunction. Patient was taken to surgery for I&D of right forearm abscess by Dr. ellis. Patient was being monitored by primary team for sepsis and impaction, surgery for wound care. Infectious disease had been consulted. Patient continued to complain of right arm pain as his condition improved. On the day of departure, his white count was 28.5 and all of his other laboratory results were within normal limits. Patient continued to be treated with meropenem and vancomycin, IV fluids and close monitoring of his vital signs. On day of departure, his vital signs were normal, he was no longer tachycardic by afternoon, no tachypnea. Patient was complaining of pain that was not being relieved by medication that he was being given. He was seen by Dr. ellis prior to his departure and after his visit he stated that he was going to sign out AMA. He appeared to be upset with Dr. ellis and the fact that he was not receiving better pain medication. He stated that he could get better pain relief on the street than what he was receiving here. I discussed the risks of leaving, his need for adequate treatment with antibiotics and wound care, and the fact that he had just recently been septic, and he states that he understood was not going to stay here. He reported that he was going to go to [facility] for treatment. When he discharged I gave him a prescription for Levaquin. He signed out AMA. Hospital course: Mr. Pruitt is a 37 year old male - Time Spent with Patient Total time spent providing and/or coordinating discharge services: Less than 30 minutes - Constitutional Vitals: Temp Pulse Resp BP Pulse Ox 98.7 F 76 18 119/75 99 04/21/17 15:20 04/21/17 15:20 04/21/17 15:20 04/21/17 15:20 04/21/17 15:20 General appearance: Present: cooperative, A&O X 3, pleasant, no acute distress, answers questions appropriately - Head Head exam: Present: atraumatic, normal inspection, normocephalic - Eye Eye exam: Present: normal appearance, conjuntiva pink - ENT ENT exam: Present: mucous membranes moist, normal exam, normal external ear exam - Extremities Exam Extremities exam: Present: normal capillary refill, radial pulses palpable and symmetrical. Absent: normal inspection, pedal edema, tenderness - Expanded Upper Extremities Exam Shoulder exam: Present: normal inspection Elbow exam: Present: full ROM Forearm wrist exam: Present: erythema, swelling, tenderness (Patient with extensive cellulitis and surgical incision from I&D by surgery to right forearm. ) - Neurological Exam Neurological exam: Present: alert, normal gait, oriented X3, no focal deficits. Absent: facial droop, speech deficit - Skin Skin exam: Present: dry, normal color, warm - VTE Documentation of Mechanical Device: Intermittent pneumatic compression device
== END 2017-04-21 17:15 | disposition left against medical advice (07) | DRG 720 ==
LOC: 3BNU
PROVIDERS: ADMIT Hospitalist; ATTEND Family Medicine

== ENCOUNTER 2020-10-19 16:59 | Inpatient (IN) ==
[2020-10-19] MEDS ORDERED: *HR* LORazepam 2 MG/ML VIAL IM ONE (17:45)
[2020-10-19 18:14] LABS: Potassium 2.8 mEq/L (3.5-5.1)
[2020-10-19 18:23] LABS: Thyroid Stimulating Hormone 0.956 mcIU/mL (0.340-5.600)
[2020-10-19 18:39] LABS: Amorphous Sediment,Urine Few per hpf (None-Few); Bacteria,Urine Few per hpf (None-Few); Bilirubin,Urine Negative (Negative); Blood,Urine Negative (Negative); Clarity,Urine Turbid (Clear); Color,Urine Light-Yellow (Yellow); Glucose,Urine (UA) Normal (Normal); Hyaline Casts,Urine Few per lpf (None Seen); Ketones,Urine Trace mg/dL (Negative); Leukocyte Esterase,Urine Negative (Negative); Mucus,Urine Few per lpf (None-Few); Nitrite,Urine Negative (Negative); PH,Urine 7.5 pH Units (5.0-8.0); Protein,Urine 30 mg/dL (Neg-Trace); RBC,Urine 0-3 per hpf (0-3); Specific Gravity,Urine 1.012 (1.010-1.025); Sperm,Urine Present (None Seen); Squamous Epithelial Cell,Urine Few per hpf (None-Few); Urobilinogen,Urine Normal (Normal); WBC,Urine 0-3 per hpf (0-3)
[2020-10-19 19:04] LABS: Amphetamine Screen,Urine Positive ng/mL (Cutoff=1000); Barbiturate Screen,Urine Negative ng/mL (Cutoff=200); Benzodiazepines Screen,Urine Negative ng/mL (Cutoff=200); Cannabinoid Screen,Urine Positive ng/mL (Cutoff = 50); Cocaine Screen,Urine Negative ng/mL (Cutoff= 300); Opiate Screen,Urine Negative ng/mL (Cutoff=300); Phencyclidine Screen,Urine Negative ng/mL (Cutoff=25)
[2020-10-19] MEDS ORDERED: Mag Hydrox/Al Hydrox/Simeth 30 ML UDC PO PRN (22:23)
[2020-10-19] MEDS ORDERED: Haloperidol Lactate 5 MG/ML VIAL IM PRN (22:23)
[2020-10-19] MEDS ORDERED: QUEtiapine Fumarate 25 MG TABLET PO PRN (22:23)
[2020-10-19] MEDS ORDERED: *HR* LORazepam 1 MG TABLET PO PRN (22:23)
[2020-10-19] MEDS ORDERED: MOM Conc 10 ML UD.LIQ PO PRN (22:23)
[2020-10-19] MEDS ORDERED: *HR* LORazepam 2 MG/ML VIAL IM PRN (22:23)
[2020-10-19] MEDS ORDERED: haloperidoL 5 MG TABLET PO PRN (22:23)
[2020-10-20] MEDS: Acetaminophen 325 MG TABLET PO PRN ×2 (03:41→14:54)
[2020-10-20] MEDS: hydrOXYzine pamoate 25 MG CAPSULE PO PRN ×2 (03:41→13:55)
[2020-10-20] MEDS: chlorproMAZINE 25 MG TABLET PO SCH ×2 (13:55→19:46)
[2020-10-21] MEDS: chlorproMAZINE 25 MG TABLET PO SCH ×2 (09:02→20:42)
[2020-10-21] MEDS: Acetaminophen 325 MG TABLET PO PRN ×2 (17:50→20:43)
[2020-10-21] MEDS: hydrOXYzine pamoate 25 MG CAPSULE PO PRN (20:42)
[2020-10-22] MEDS: Acetaminophen 325 MG TABLET PO PRN (08:37)
[2020-10-22] MEDS: chlorproMAZINE 25 MG TABLET PO SCH ×2 (08:37→20:01)
[2020-10-22] MEDS: Amoxicillin 500 MG CAPSULE PO SCH ×2 (15:50→20:01)
[2020-10-23] MEDS: Amoxicillin 500 MG CAPSULE PO SCH ×3 (08:21→20:25)
[2020-10-23] MEDS: chlorproMAZINE 25 MG TABLET PO SCH ×2 (08:22→20:25)
[2020-10-23] MEDS: Acetaminophen 325 MG TABLET PO PRN ×2 (08:22→18:38)
[2020-10-23] MEDS: hydrOXYzine pamoate 25 MG CAPSULE PO PRN ×3 (12:26→20:25)
[2020-10-24] MEDS: Amoxicillin 500 MG CAPSULE PO SCH (08:36)
[2020-10-24] MEDS: chlorproMAZINE 25 MG TABLET PO SCH (08:36)
[2020-10-24 09:48] VITALS: BP 132/85
[2020-10-24] MEDS: Acetaminophen 325 MG TABLET PO PRN (10:02)
== END 2020-10-24 10:44 | disposition home or self-care (01) | DRG 750 ==
LOC: 1ANU 16:59 → EMEROOARM 16:59 → 1ANU 22:40
PROVIDERS: ADMIT Psychiatry & Neurology Psychiatry; ATTEND Psychiatry & Neurology Psychiatry

== ENCOUNTER 2020-12-21 19:37 | Observation (INO) ==
[2020-12-21] MEDS ORDERED: 0.9 % Sodium Chloride 1,000 ML IVC ONE ×2 (21:10→23:04)
[2020-12-21 21:51] LABS: Basophils # 0.1 K/mcL (0.0-0.2); Basophils % 0.4 %; Eosinophils # 0.1 K/mcL (0.0-0.6); Eosinophils % 0.6 %; Hematocrit 34.2 % (37.5-50.1); Hemoglobin 12.1 g/dL (12.9-16.9); Immature Granulocytes % 0.9 % (0-4); Lymphocytes % 13.2 %; Mean Corpuscular HGB Conc 35.4 g/dL (31.6-35.5); Mean Corpuscular Hemoglobin 30.3 pg (28.0-33.3); Mean Corpuscular Volume 85.5 fL (83.0-100.0); Mean Platelet Volume 9.2 fL (9.4-12.4); Monocytes # 2.9 K/mcL (0.0-1.3); Monocytes % 12.6 %; Neutrophils # 16.6 K/mcL (1.6-8.9); Platelet Count 325 K/mcL (140-400); Segmented Neutrophils % 72.3 %; White Blood Count 22.9 K/mcL (4.3-11.1)
[2020-12-21 22:13] LABS: Acetaminophen < 10 mcg/mL (10-20); Alanine Aminotransferase 31 Units/L (7-52); Albumin 3.6 g/dL (3.5-5.7); Albumin/Globulin Ratio 1.4 (1.1-2.2); Alkaline Phosphatase 76 Units/L (34-104); Aspartate Amino Transferase 44 Units/L (13-39); BUN/Creatinine Ratio 30 (6-26); Bilirubin,Direct 0.6 mg/dL (0.0-0.2); Bilirubin,Indirect 1.4 mg/dL (0.0-1.0); Blood Urea Nitrogen 24 mg/dL (6-20); Calcium 8.2 mg/dL (8.6-10.3); Carbon Dioxide 23 mEq/L (23-29); Chloride 100 mEq/L (98-107); Ethanol < 10 mg/dL (Less than 10); Globulin 2.6 g/dL (2.4-3.5); Glucose 116 mg/dL (70-105); Lipase 18 Units/L (11-82); Osmolality,Calculated 279 (280-300); Potassium 3.1 mEq/L (3.5-5.1); Salicylate < 2.5 mg/dL (15.0-30.0); Sodium 132 mEq/L (136-145); Total Protein 6.2 g/dL (6.4-8.9); Troponin I 0.03 ng/mL (< 0.04); eGFR For African Americans > 60 (> 60); eGFR For Non-African Americans > 60 (> 60)
[2020-12-21 22:48] LABS: Bacteria,Urine Few per hpf (None-Few); Bilirubin,Urine Negative (Negative); Blood,Urine Negative (Negative); Clarity,Urine Clear (Clear); Color,Urine Light-Orange (Yellow); Glucose,Urine (UA) Normal (Normal); Ketones,Urine Trace mg/dL (Negative); Leukocyte Esterase,Urine Negative (Negative); Mucus,Urine Few per lpf (None-Few); Nitrite,Urine Negative (Negative); PH,Urine 6.5 pH Units (5.0-8.0); Protein,Urine 30 mg/dL (Neg-Trace); RBC,Urine 0-3 per hpf (0-3); Specific Gravity,Urine > 1.030 (1.010-1.025); Squamous Epithelial Cell,Urine Few per hpf (None-Few); Urobilinogen,Urine >=8.0 mg/dL (Normal)
[2020-12-21 22:54] LABS: Amphetamine Screen,Urine Positive ng/mL (Cutoff=1000); Barbiturate Screen,Urine Negative ng/mL (Cutoff=200); Benzodiazepines Screen,Urine Negative ng/mL (Cutoff=200); Cannabinoid Screen,Urine Positive ng/mL (Cutoff = 50); Cocaine Screen,Urine Positive ng/mL (Cutoff= 300); Opiate Screen,Urine Negative ng/mL (Cutoff=300); Phencyclidine Screen,Urine Negative ng/mL (Cutoff=25)
[2020-12-21] MEDS ORDERED: Isovue-370 500 ML BOTTLE IVP ONE (23:00)
[2020-12-22 00:21] LABS: C-Reactive Protein 52 mg/L (Less than 10)
[2020-12-22 01:25] LABS: Adenovirus Not Detected (Not Detect); Coronavirus 229E Not Detected (Not Detect); Coronavirus HKU1 Not Detected (Not Detect); Coronavirus NL63 Not Detected (Not Detect)
[2020-12-22 01:26] LABS: Bordetella Pertussis Not Detected (Not Detect); Chlamydophila pneumoniae Not Detected (Not Detect); Coronavirus OC43 Not Detected (Not Detect); Human Metapneumovirus Not Detected (Not Detect); Human Rhinovirus/Enterovirus Not Detected (Not Detect); Influenza A Subtype 2009 H1 Not Detected (Not Detect); Influenza B Not Detected (Not Detect); Mycoplasma pneumoniae Not Detected (Not Detect); Parainfluenza Virus 1 Not Detected (Not Detect); Parainfluenza Virus 2 Not Detected (Not Detect); Parainfluenza Virus 3 Not Detected (Not Detect); Parainfluenza Virus 4 Not Detected (Not Detect); Respiratory Syncytial Virus Not Detected (Not Detect); SARS-CoV-2 Not Detected (Not Detect)
[2020-12-22] MEDS ORDERED: Azithromycin 500 MG in 0.9 % Sodium Chloride 250 ML IVPB ONE (01:28)
[2020-12-22] MEDS ORDERED: cefTRIAXone 1,000 MG in Water for inj. (sterile) 10 ML IVP ONE (01:28)
[2020-12-22] MEDS ORDERED: Ondansetron 4 MG/2 ML VIAL IVP PRN (02:45)
[2020-12-22] MEDS ORDERED: 0.9 % Sodium Chloride 1,000 ML IVC SCH (02:45)
[2020-12-22] MEDS ORDERED: Acetaminophen 325 MG TABLET PO PRN (02:45)
[2020-12-22] MEDS ORDERED: Naloxone 0.4 MG/ML INJ IVP PRN (02:45)
[2020-12-22] MEDS ORDERED: Isovue-370 500 ML BOTTLE IVP ONE (05:12)
[2020-12-22 08:09] LABS: Hematocrit 34.4 % (37.5-50.1); Hemoglobin 11.8 g/dL (12.9-16.9); Mean Corpuscular HGB Conc 34.3 g/dL (31.6-35.5); Mean Corpuscular Hemoglobin 29.9 pg (28.0-33.3); Mean Corpuscular Volume 87.3 fL (83.0-100.0); Mean Platelet Volume 9.7 fL (9.4-12.4); Platelet Count 306 K/mcL (140-400); Red Blood Count 3.94 M/mcL (4.19-5.50); Red Cell Distribution Width 13.2 % (11.5-14.5); White Blood Count 17.4 K/mcL (4.3-11.1)
[2020-12-22 08:19] LABS: BUN/Creatinine Ratio 18 (6-26); Blood Urea Nitrogen 13 mg/dL (6-20); Calcium 7.8 mg/dL (8.6-10.3); Carbon Dioxide 23 mEq/L (23-29); Chloride 104 mEq/L (98-107); Glucose 128 mg/dL (70-105); Osmolality,Calculated 278 (280-300); Potassium 3.2 mEq/L (3.5-5.1); Sodium 133 mEq/L (136-145); eGFR For African Americans > 60 (> 60); eGFR For Non-African Americans > 60 (> 60)
[2020-12-22] MEDS ORDERED: *HR* LORazepam 2 MG/ML VIAL IVP PRN (08:42)
[2020-12-22] MEDS ORDERED: Ringers Solution, Lactated 1,000 ML IVC ONE (08:42)
[2020-12-22] MEDS: levoFLOXacin 750 MG/150 ML 750 MG/150 ML BAG IVPB SCH (09:33)
[2020-12-22 10:34] LABS: Alanine Aminotransferase 26 Units/L (7-52); Albumin/Globulin Ratio 1.3 (1.1-2.2); Alkaline Phosphatase 67 Units/L (34-104); Aspartate Amino Transferase 35 Units/L (13-39); BUN/Creatinine Ratio 17 (6-26); Bilirubin,Total 0.9 mg/dL (0.3-1.0); Blood Urea Nitrogen 12 mg/dL (6-20); Calcium 7.8 mg/dL (8.6-10.3); Carbon Dioxide 25 mEq/L (23-29); Chloride 106 mEq/L (98-107); Globulin 2.4 g/dL (2.4-3.5); Glucose 113 mg/dL (70-105); Osmolality,Calculated 283 (280-300); Potassium 3.7 mEq/L (3.5-5.1); Sodium 136 mEq/L (136-145); Total Protein 5.4 g/dL (6.4-8.9); Troponin I 0.03 ng/mL (< 0.04); eGFR For African Americans > 60 (> 60); eGFR For Non-African Americans > 60 (> 60)
[2020-12-22] MEDS: Vancomycin 1,250 MG/262.5 ML IV.SOLN IVPB SCH (12:26)
[2020-12-22] MEDS ORDERED: Azithromycin 500 MG in 0.9 % Sodium Chloride 250 ML IVPB SCH (21:00)
[2020-12-22] MEDS ORDERED: cefTRIAXone 1,000 MG in 0.9 % Sodium Chloride Mini Bag 100 ML IVPB SCH (21:00)
[2020-12-22] MEDS: *HR* Heparin 5,000 UNIT/ML VIAL SQ SCH (21:00)
[2020-12-23] MEDS: Vancomycin 1,250 MG/262.5 ML IV.SOLN IVPB SCH ×2 (01:10→12:11)
[2020-12-23 02:58] LABS: Basophils # 0.1 K/mcL (0.0-0.2); Basophils % 0.4 %; Eosinophils # 0.3 K/mcL (0.0-0.6); Eosinophils % 1.4 %; Hematocrit 38.8 % (37.5-50.1); Hemoglobin 12.7 g/dL (12.9-16.9); Immature Granulocytes % 1.1 % (0-4); Lymphocytes # 3.3 K/mcL (0.6-4.6); Lymphocytes % 18.1 %; Mean Corpuscular HGB Conc 32.7 g/dL (31.6-35.5); Mean Corpuscular Hemoglobin 29.2 pg (28.0-33.3); Mean Corpuscular Volume 89.2 fL (83.0-100.0); Monocytes # 2.5 K/mcL (0.0-1.3); Monocytes % 13.6 %; Neutrophils # 11.8 K/mcL (1.6-8.9); Platelet Count 291 K/mcL (140-400); Red Blood Count 4.35 M/mcL (4.19-5.50); Red Cell Distribution Width 13.4 % (11.5-14.5); Segmented Neutrophils % 65.4 %
[2020-12-23 03:18] LABS: BUN/Creatinine Ratio 16 (6-26); Blood Urea Nitrogen 11 mg/dL (6-20); Carbon Dioxide 23 mEq/L (23-29); Chloride 105 mEq/L (98-107); Glucose 88 mg/dL (70-105); Magnesium 1.9 mg/dL (1.6-2.6); Osmolality,Calculated 281 (280-300); Potassium 3.8 mEq/L (3.5-5.1); Sodium 136 mEq/L (136-145); eGFR For African Americans > 60 (> 60); eGFR For Non-African Americans > 60 (> 60)
[2020-12-23 03:24] LABS: Troponin I 0.04 ng/mL (< 0.04)
[2020-12-23] MEDS: *HR* Heparin 5,000 UNIT/ML VIAL SQ SCH ×3 (05:35→21:39)
[2020-12-23] MEDS: levoFLOXacin 750 MG/150 ML 750 MG/150 ML BAG IVPB SCH (08:48)
[2020-12-24] MEDS: Vancomycin 1,500 MG/265 ML IV.SOLN IVPB SCH ×3 (01:36→17:14)
[2020-12-24 02:43] LABS: Basophils # 0.1 K/mcL (0.0-0.2); Basophils % 0.7 %; Eosinophils # 0.5 K/mcL (0.0-0.6); Eosinophils % 4.2 %; Hematocrit 38.7 % (37.5-50.1); Hemoglobin 13.2 g/dL (12.9-16.9); Immature Granulocytes % 1.5 % (0-4); Lymphocytes # 2.7 K/mcL (0.6-4.6); Lymphocytes % 23.7 %; Mean Corpuscular HGB Conc 34.1 g/dL (31.6-35.5); Mean Corpuscular Hemoglobin 30.1 pg (28.0-33.3); Mean Corpuscular Volume 88.4 fL (83.0-100.0); Mean Platelet Volume 9.6 fL (9.4-12.4); Monocytes # 1.4 K/mcL (0.0-1.3); Neutrophils # 6.5 K/mcL (1.6-8.9); Platelet Count 349 K/mcL (140-400); Red Blood Count 4.38 M/mcL (4.19-5.50); Red Cell Distribution Width 13.3 % (11.5-14.5); Segmented Neutrophils % 57.9 %; White Blood Count 11.3 K/mcL (4.3-11.1)
[2020-12-24 03:03] LABS: BUN/Creatinine Ratio 22 (6-26); Blood Urea Nitrogen 14 mg/dL (6-20); Calcium 8.3 mg/dL (8.6-10.3); Carbon Dioxide 24 mEq/L (23-29); Chloride 106 mEq/L (98-107); Glucose 115 mg/dL (70-105); Osmolality,Calculated 285 (280-300); Potassium 3.5 mEq/L (3.5-5.1); Sodium 137 mEq/L (136-145); eGFR For African Americans > 60 (> 60); eGFR For Non-African Americans > 60 (> 60)
[2020-12-24] MEDS: *HR* Heparin 5,000 UNIT/ML VIAL SQ SCH ×2 (05:10→13:47)
[2020-12-24] MEDS: levoFLOXacin 750 MG/150 ML 750 MG/150 ML BAG IVPB SCH (10:00)
[2020-12-25 01:32] LABS: Basophils # 0.2 K/mcL (0.0-0.2); Basophils % 1.5 %; Eosinophils # 0.6 K/mcL (0.0-0.6); Eosinophils % 5.8 %; Hematocrit 42.1 % (37.5-50.1); Immature Granulocytes % 2.9 % (0-4); Lymphocytes # 2.6 K/mcL (0.6-4.6); Lymphocytes % 25.1 %; Mean Corpuscular HGB Conc 33.3 g/dL (31.6-35.5); Mean Corpuscular Volume 87.2 fL (83.0-100.0); Mean Platelet Volume 9.6 fL (9.4-12.4); Monocytes # 1.1 K/mcL (0.0-1.3); Monocytes % 10.5 %; Neutrophils # 5.6 K/mcL (1.6-8.9); Platelet Count 381 K/mcL (140-400); Red Blood Count 4.83 M/mcL (4.19-5.50); Red Cell Distribution Width 13.3 % (11.5-14.5); Segmented Neutrophils % 54.2 %; White Blood Count 10.2 K/mcL (4.3-11.1)
[2020-12-25 01:51] LABS: BUN/Creatinine Ratio 18 (6-26); Blood Urea Nitrogen 11 mg/dL (6-20); Calcium 8.6 mg/dL (8.6-10.3); Carbon Dioxide 23 mEq/L (23-29); Chloride 106 mEq/L (98-107); Glucose 110 mg/dL (70-105); Magnesium 1.9 mg/dL (1.6-2.6); Osmolality,Calculated 282 (280-300); Potassium 3.8 mEq/L (3.5-5.1); Sodium 136 mEq/L (136-145); eGFR For African Americans > 60 (> 60); eGFR For Non-African Americans > 60 (> 60)
[2020-12-25] MEDS: *HR* Heparin 5,000 UNIT/ML VIAL SQ SCH ×2 (02:43→07:00)
[2020-12-25] MEDS: Vancomycin 1,500 MG/265 ML IV.SOLN IVPB SCH (02:46)
[2020-12-25 04:02] VITALS: BP 122/70
[2020-12-25] MEDS: levoFLOXacin 750 MG/150 ML 750 MG/150 ML BAG IVPB SCH (12:22)
== END 2020-12-25 12:02 | disposition home or self-care (01) ==
LOC: EMEROOARM 19:37 → CDU 19:37 → SUATTDRO 12-22 02:19 → CDU 12-22 02:44 → 3ANU 12-23 13:34
PROVIDERS: ADMIT Student in an Organized Health Care Education/Training Program; ATTEND Pharmacist